=== PATIENT | female | born 1940 | race Caucasian/White ===

== ENCOUNTER 2018-04-01 18:20 | Inpatient (IN) | payer MEDICARE, OTHER ==
[~2018-04-01] VITALS: Ht 149.9 cm; Wt 76.2 kg
[~2018-04-01 18:20] MED LIST: AMLO5TAB7 PO; AMOX-427 PO; LEVO750T21 PO; LORA1TAB PO; PRED20TA PO
[2018-04-01 18:25] VITALS: BP 205/104
--- NOTE | 2018-04-01 18:25 | NUR ---
RECEIVED PT IN ER. PT RESP DISTRESS, SOB, TACHYPNEIC RESP RATE IN THE 40'S. PLACED PT ON BIPAP PER MD ORDER. 02/03, R: 16, 100%. MD AT BEDSIDE. Addendum: 04/01/18 at 1846 by LIOR LEARY RT Amended: Links added.
--- NOTE | 2018-04-01 18:29 | NUR ---
BIIBRA 102 FROM HOME DT SOB. PATIENT RECEIVED ON BIPAP. NOTED WITH DISTRESS. PATIENT REMAINS AWAKE, SATING 88% ON ROOM AIR. SKIN IS WARM TO TOUCH AND NON DIAPHORETIC. PATIENT IS AFEBRILE. NO CHEST PAIN. CONNECTED PT TO TELE MONITOR. RT AT [facility] FOR BIPAP. MD KATELIN Mcneil BEDSIDE
[2018-04-01] MEDS ORDERED: FUROSEMIDE 40 MG/4 ML VIAL IV ONE (18:30)
[2018-04-01] MEDS ORDERED: FUROSEMIDE 40 MG/4 ML VIAL ONE (18:35)
[2018-04-01] MEDS ORDERED: ESOM40CA52 PO (18:40)
[2018-04-01] MEDS ORDERED: PROP20TA19 PO (18:40)
[2018-04-01] MEDS ORDERED: EZET10TA27 PO (18:40)
[2018-04-01] MEDS ORDERED: FLUT1DIS3 IH (18:40)
[2018-04-01] MEDS ORDERED: AMYL1CAP58 PO (18:40)
[2018-04-01] MEDS ORDERED: MEMA10TA PO (18:40)
[2018-04-01] MEDS ORDERED: AMLO5TAB7 PO (18:40)
[2018-04-01] MEDS ORDERED: ROSU10TA28 PO (18:40)
[2018-04-01] MEDS ORDERED: methylPREDNISolone SOD SUCC 125 MG/2ML VIAL ONE (18:55)
[2018-04-01] MEDS ORDERED: methylPREDNISolone SOD SUCC 125 MG/2ML VIAL IV ONE (19:00)
[2018-04-01] MEDS ORDERED: ALBUTEROL FS 2.5 MG/3 ML VIAL.NEB CONTNEB ONE (19:00)
--- NOTE | 2018-04-01 19:04 | NUR ---
NOTIFIED RT FOR BREATHING TX
--- NOTE | 2018-04-01 19:04 | NUR ---
REPORT GIVEN TO MARIBEL KOHLI FOR REYES
[2018-04-01] MEDS ORDERED: ALBUTEROL FS 2.5 MG/3 ML VIAL.NEB ONE (19:16)
[2018-04-01 19:30] VITALS: BP 205/104
[2018-04-01 19:54] LABS: BASOPHILS % (AUTO) 0.1 % (0.0-2.0); EOSINOPHILS % (AUTO) 0.2 % (0.0-6.0); HEMATOCRIT 40 % (33-45); HEMOGLOBIN 13.2 g/dL (11.5-14.8); LYMPHOCYTES # (AUTO) 0.4 /CMM (0.8-4.8); MEAN CORPUSCULAR HGB CONC 34 g/dl (31.0-36.0); MEAN CORPUSCULAR VOLUME 92 fL (82-100); MONOCYTES % (AUTO) 0.3 % (2.0-12.0); NEUTROPHILS # (AUTO) 7.5 /CMM (1.8-8.9); NEUTROPHILS % (AUTO) 94.4 % (43.0-81.0); PLATELET COUNT (AUTO) 243 /CMM (150-450); RDW COEFFICIENT OF VARIATION 12.9 (11.5-15.0); RED BLOOD CELL COUNT(AUTO) 4.31 MIL/uL (4.0-5.2); WHITE BLOOD COUNT (AUTO) 7.9 K/uL (4.3-11.0)
[2018-04-01 20:00] VITALS: BP 100/56
[2018-04-01 20:07] LABS: INR 0.96 (0.87-1.13)
--- NOTE | 2018-04-01 20:30 | NUR ---
ABG TAKEN AND GIVEN TO DR MAYNARD. ABG RESULTS WNL. PATIENTS TAKEN OFF BIPAP AND PLACED ON 2LNC PER DR MAYNARD'S REQUEST. WILL CONTINUE TO MONITOR Addendum: 04/01/18 at 2056 by DEO VERA RT Amended: Links added.
[2018-04-01 20:35] LABS: CALCIUM, SERUM 9.5 mg/dL (8.5-10.1); CARBON DIOXIDE 24 mmol/L (21-32); CHLORIDE 104 mmol/L (98-107); GLUCOSE 93 mg/dL (74-106); POTASSIUM 3.8 mmol/L (3.5-5.1); SODIUM SERUM 141 mmol/L (136-145); UREA NITROGEN, BLOOD 14 mg/dL (7-18)
--- NOTE | 2018-04-01 20:35 | NUR ---
CALLED NURSING SUP. FOR [facility] BED
[2018-04-01 20:36] LABS: ABG BASE EXCESS -2.3 mmol/L; ABG PCO2 36.6 mmHg (35.0-45.0); ABG PH 7.396 (7.350-7.450); ABG PO2 402.6 mmHg (75.0-100.0); AaDO2 273.8 mmHg; SITE, ABG Right Radial
--- NOTE | 2018-04-01 20:36 | NUR ---
PATIENT TAKEN OFF BIPAP. NO RESP DISTRESS NOTED AT THIS TIME. WILL CONTINUE TO MONITOR
[2018-04-01 20:40] LABS: TROPONIN I < 0.017 ng/mL (0.00-0.056)
--- NOTE | 2018-04-01 20:45 | NUR ---
JUANJOSE VERDUZCO, SYDNEY PRESLEY NP INVESTIGATIVE SHOPPER
--- NOTE | 2018-04-01 20:47 | NUR ---
MAIKEL 109 FOR CHF EXACERBATION, SYDNEY PRESLEY ADMITTING.
[2018-04-01 20:50] LABS: ALANINE AMINOTRANSFERASE 121 U/L (12-78); ALBUMIN 3.8 g/dL (3.4-5.0); ALKALINE PHOSPHATASE 90 U/L (46-116); ASPARTATE AMINOTRANSFERASE 130 U/L (15-37); B-TYPE NATRIURETIC PEPTIDE 166 PG/ML (0-125); BILIRUBIN,DIRECT 0.2 mg/dL (0.0-0.2); BILIRUBIN,TOTAL 0.8 mg/dL (0.2-1.0); TOTAL PROTEIN, SERUM 8.1 g/dL (6.4-8.2)
--- NOTE | 2018-04-01 20:56 | NUR ---
MARIELY KOHLI TOOK REPORT FOR REYES
[2018-04-01 21:39] VITALS: BP 100/56
--- NOTE | 2018-04-01 21:41 | NUR ---
TRANSPORTED PT TO [facility]ED WITH EMT WITHOUT INCIDENT
[2018-04-01] MEDS ORDERED: ONDANSETRON HCL/PF 4 MG/2 ML VIAL IVP PRN (22:00)
[2018-04-01] MEDS ORDERED: HYDROCODONE/APAP 5/325MG 1 EACH TABLET PO PRN (22:00)
[2018-04-01] MEDS ORDERED: MORPHINE SULFATE INJ 4 MG/ML DISP.SYRIN IV PRN (22:00)
[2018-04-01] MEDS ORDERED: MAGNESIUM HYDROXIDE 30 ML UDC PO PRN (22:00)
[2018-04-01] MEDS ORDERED: MAG HYDROX/AL HYDROX/SIMETH 30 ML UDC PO PRN (22:00)
[2018-04-01] MEDS ORDERED: TEMAZEPAM 7.5 MG CAPSULE PO PRN ×2 (22:00→22:13)
[2018-04-01] MEDS ORDERED: PROPRANOLOL HCL 40 MG TABLET PO PRN (22:00)
[2018-04-01] MEDS ORDERED: LORAZEPAM 1 MG TABLET PO PRN (22:00)
[2018-04-01] MEDS: ATORVASTATIN 10 MG TABLET PO SCH (22:26)
[2018-04-01] MEDS: ENOXAPARIN SODIUM 40 MG/0.4 ML DISP.SYRIN SQ SCH (22:27)
[2018-04-02] VITALS (9 sets, daily range): BP systolic 93–145; BP diastolic 53–62
[2018-04-02 06:38] LABS: HEMATOCRIT 34 % (33-45); HEMOGLOBIN 11.4 g/dL (11.5-14.8); LYMPHOCYTES # (AUTO) 0.3 /CMM (0.8-4.8); LYMPHOCYTES % (AUTO) 1.8 % (20.0-44.0); MEAN CORPUSCULAR HGB CONC 34 g/dl (31.0-36.0); MEAN CORPUSCULAR VOLUME 92 fL (82-100); MONOCYTES # (AUTO) 0.5 /CMM (0.1-1.30); MONOCYTES % (AUTO) 2.6 % (2.0-12.0); NEUTROPHILS # (AUTO) 18.1 /CMM (1.8-8.9); NEUTROPHILS % (AUTO) 95.6 % (43.0-81.0); PLATELET COUNT (AUTO) 190 /CMM (150-450); RDW COEFFICIENT OF VARIATION 13.4 (11.5-15.0); RED BLOOD CELL COUNT(AUTO) 3.66 MIL/uL (4.0-5.2); WHITE BLOOD COUNT (AUTO) 18.9 K/uL (4.3-11.0)
[2018-04-02 06:47] LABS: CALCIUM, SERUM 9.2 mg/dL (8.5-10.1); CARBON DIOXIDE 26 mmol/L (21-32); CHLORIDE 107 mmol/L (98-107); CREATININE 1.3 mg/dL (0.6-1.3); GLUCOSE 163 mg/dL (74-106); MAGNESIUM 1.5 mg/dL (1.8-2.4); PHOSPHORUS 3.5 mg/dL (2.5-4.9); POTASSIUM 3.5 mmol/L (3.5-5.1); SODIUM SERUM 143 mmol/L (136-145); UREA NITROGEN, BLOOD 21 mg/dL (7-18)
[2018-04-02 07:11] LABS: CHOLESTEROL 158 mg/dL (<200); HDL CHOLESTEROL 40 mg/dL (40-60); LDL 108 mg/dL (0-99); TRIGLYCERIDES 67 mg/dL (30-150)
--- NOTE | 2018-04-02 07:29 | NUR ---
MAIKEL RN NOTE PATENT IN BED RESTING COMFORTABLY , ON 2L NC, NO SOB NOTED AT THIS ,ON TELE MONITOR SR TIME , LT HAND HL INTACT , BED IN LOWEST AND LOCKED POSITION ,ON TELE MONITOR SR 95 , WILL CONT TO MONITOR CLOSELY ,CALL LIGHT WITHIN REACH
[2018-04-02] MEDS ORDERED: AMYLASE/LIPASE/PROTEASE 1 CAP CAPSULE.DR PO SCH (08:00)
[2018-04-02] MEDS: EZETIMIBE 10 MG TABLET PO SCH (08:12)
[2018-04-02] MEDS: MEMANTINE HCL 5 MG TABLET PO SCH ×2 (08:12→17:00)
[2018-04-02] MEDS: LIPASE/PROTEASE/AMYLASE 1 EACH CAPSULE.DR PO SCH ×3 (08:48→17:08)
[2018-04-02] MEDS ORDERED: AMLODIPINE BESYLATE 5 MG TABLET PO SCH (09:00)
[2018-04-02] MEDS ORDERED: FUROSEMIDE 40 MG TABLET PO SCH (09:00)
--- NOTE | 2018-04-02 09:36 | NUR ---
MAIKEL RN NOTE BP 100/56 DR JONES NOTIFIED ALSO NOTIFIED THAT NORVASC HOLD AT THIS TIME AND LOWER BOTH LEGS WITH EDEMA ,STATED WILL GIVE NEW ORDER , WILL F\U
[2018-04-02] MEDS: Magnesium 1GM/D5W 100ML PREMIX 100 ML IV SCH ×2 (09:54→10:52)
[2018-04-02 11:12] LABS: TROPONIN I < 0.017 ng/mL (0.00-0.056)
--- NOTE | 2018-04-02 12:00 | NUR ---
DIESEL PILE HAMMER OPERATOR NOTE ASSISTED TO BR , ABLE TO URINATE WELL , KEEP CLEAN DRY ,NOT IN DISTRESS
[2018-04-02 12:53] LABS: FERRITIN 327 ng/mL (8-388); THYROID STIMULATING HORMONE 0.866 uIU/mL (0.358-3.74)
--- NOTE | 2018-04-02 13:11 | NUR ---
ALTERNATIVE ENERGY TECHNICIAN NOTE SEEN BY DR SOSA LÓPEZ NEW ORDER AT THIS TIME ,FAMILY AT BEDSIDE Addendum: 04/02/18 at 1401 by CARLENE COFFMAN RN 2D ECHO DONE ORDERED
[2018-04-02 13:16] LABS: IRON, SERUM 10 ug/dl (50-175); TOTAL IRON BINDING CAPACITY 241 ug/dl (250-450)
[2018-04-02] MEDS: IPRATROPIUM NEB FS 0.5 MG/2.5 ML AMPUL.NEB NEB SCH ×2 (15:29→19:16)
--- NOTE | 2018-04-02 15:29 | NUR ---
LANDSCAPE DRAFTER NOTE SPOKE WITH WITH LETITIA KOHLI RV SERVICE TECHNICIAN ,NO PT AT THIS TIME BUT OK TO TAKE PATIENT TO BS WITH ASSISTANCE
--- NOTE | 2018-04-02 16:08 | NUR ---
BILINGUAL SALES REPRESENTATIVE NOTE UA COLLECTED ORDERED, KEEP CLEAN DRY, ALL NEEDS ATTENDED. FAMILY AT BEDSIDE
--- NOTE | 2018-04-02 17:28 | NUR ---
BURIAL AGENT NOTE SPOKE WITH US TECH FAVIAN STATED THAT WILL DO DOPPLER STUDY BOTH LEGS LATTER ON ,WILL F\U
[2018-04-02 17:43] LABS: APPEARANCE,URINE CLEAR (CLEAR); BILIRUBIN,URINE NEGATIVE (NEGATIVE); BLOOD, URINE NEGATIVE Ery/uL (NEGATIVE); COLOR,URINE YELLOW (YELLOW); KETONES,URINE NEGATIVE (NEGATIVE); LEUKOCYTE ESTERASE ,URINE NEGATIVE (NEGATIVE); NITRITE, URINE NEGATIVE (NEGATIVE); PH,URINE 5.5 (5.0-8.0); PROTEIN,URINE NEGATIVE (NEGATIVE); UGLUCOSE NEGATIVE (NEGATIVE); UROBILINOGEN,URINE 0.2 EU/dL (0.2)
--- NOTE | 2018-04-02 18:25 | NUR ---
SOCIAL MEDIA EXECUTIVE NOTE HAVING DINNER , FAMILY AT BEDSIDE ,NOT IN ACUTE DISTRESS. WILL CONT TO MONITOR CLOSELY
--- NOTE | 2018-04-02 19:31 | NUR ---
VOCATIONAL GUIDANCE COUNSELOR OPENING NOTES RECEIVED REPORT FROM CARLENE KOHLI. PATIENT A/A/O X3, ABLE TO MAKE NEEDS KNOWN. BREATHING EVEN & UNLABORED, TOLERATING 2L VIA NC. CURRENTLY RECEIVING BREATHING TX. ON TELE W/ SINUS RHYTHM, HR 95. DENIES ANY RESPIRATORY OR CARDIAC DISTRESS. LEFT HAND IV #20 INTACT & PATENT W/ DRESSING CDI, SALINE LOCKED. ABLE TO AMBULATE TO BATHROOM BUT INSTRUCTED TO CALL FOR ASSISTANCE. DENIES ANY PAIN OR DISCOMFORT @ THIS TIME. SAFETY MEASURES IN PLACE W/ BED ALARM & CALL LIGHT WITHIN REACH. FAMILY @ BEDSIDE. WILL CONTINUE TO MONITOR.
[2018-04-02] MEDS: ATORVASTATIN 10 MG TABLET PO SCH (21:33)
[2018-04-02] MEDS: ENOXAPARIN SODIUM 40 MG/0.4 ML DISP.SYRIN SQ SCH (21:34)
[2018-04-02] MEDS ORDERED: MAGNESIUM OXIDE 400 MG TABLET PO SCH (22:00)
[2018-04-03] VITALS: BP 96/45
[2018-04-03] MEDS: IPRATROPIUM NEB FS 0.5 MG/2.5 ML AMPUL.NEB NEB SCH ×4 (01:18→19:17)
[2018-04-03 04:00] VITALS: BP 100/47
[2018-04-03] MEDS: ACETAMINOPHEN 325 MG TABLET PO PRN ×3 (06:11→17:50)
[2018-04-03 06:44] LABS: EOSINOPHILS % (AUTO) 1.2 % (0.0-6.0); HEMATOCRIT 32 % (33-45); HEMOGLOBIN 10.9 g/dL (11.5-14.8); LYMPHOCYTES # (AUTO) 1.7 /CMM (0.8-4.8); LYMPHOCYTES % (AUTO) 10.3 % (20.0-44.0); MEAN CORPUSCULAR HGB CONC 34 g/dl (31.0-36.0); MEAN CORPUSCULAR VOLUME 93 fL (82-100); MONOCYTES # (AUTO) 0.8 /CMM (0.1-1.30); MONOCYTES % (AUTO) 4.5 % (2.0-12.0); NEUTROPHILS # (AUTO) 14.2 /CMM (1.8-8.9); PLATELET COUNT (AUTO) 189 /CMM (150-450); RED BLOOD CELL COUNT(AUTO) 3.47 MIL/uL (4.0-5.2); WHITE BLOOD COUNT (AUTO) 16.9 K/uL (4.3-11.0)
[2018-04-03 07:03] LABS: ALANINE AMINOTRANSFERASE 166 U/L (12-78); ALBUMIN 2.9 g/dL (3.4-5.0); ALKALINE PHOSPHATASE 62 U/L (46-116); ASPARTATE AMINOTRANSFERASE 83 U/L (15-37); BILIRUBIN,TOTAL 0.6 mg/dL (0.2-1.0); CALCIUM, SERUM 8.7 mg/dL (8.5-10.1); CARBON DIOXIDE 28 mmol/L (21-32); CHLORIDE 104 mmol/L (98-107); CREATININE 0.9 mg/dL (0.6-1.3); GLUCOSE 88 mg/dL (74-106); MAGNESIUM 2.1 mg/dL (1.8-2.4); PHOSPHORUS 2.6 mg/dL (2.5-4.9); POTASSIUM 3.3 mmol/L (3.5-5.1); SODIUM SERUM 140 mmol/L (136-145); TOTAL PROTEIN, SERUM 6.8 g/dL (6.4-8.2); UREA NITROGEN, BLOOD 20 mg/dL (7-18)
[2018-04-03 07:11] LABS: TROPONIN I < 0.017 ng/mL (0.00-0.056)
--- NOTE | 2018-04-03 07:20 | NUR ---
MINING CAPTAIN OPENING NOTES RECEIVED REPORT FROM PM NURSE. PATIENT A/O X3, ABLE TO MAKE NEEDS KNOWN. BREATHING EVEN & UNLABORED, TOLERATING 2L VIA NC. ON TELE W/ SINUS RHYTHM, HR 97. DENIES ANY RESPIRATORY OR CARDIAC DISTRESS. LEFT HAND IV #20 INTACT & PATENT W/ DRESSING CDI, SALINE LOCKED. ABLE TO AMBULATE TO BATHROOM BUT INSTRUCTED TO CALL FOR ASSISTANCE. C/O PAIN AT BACK.PM NURSE GIVEN PAIN MEDS AROUND 0630. SAFETY MEASURES IN PLACE W/ BED ALARM.BED IS LOCKED AND IN LOW POSITION.SRX3. CALL LIGHT WITHIN REACH. WILL CONTINUE TO MONITOR.
[2018-04-03 08:00] VITALS: BP 126/71
[2018-04-03] MEDS: LIPASE/PROTEASE/AMYLASE 1 EACH CAPSULE.DR PO SCH ×4 (08:15→17:09)
[2018-04-03] MEDS: FUROSEMIDE 20 MG TABLET PO SCH ×2 (08:15→16:42)
[2018-04-03] MEDS: EZETIMIBE 10 MG TABLET PO SCH (08:15)
[2018-04-03] MEDS: MEMANTINE HCL 5 MG TABLET PO SCH ×2 (08:18→16:43)
[2018-04-03] MEDS ORDERED: POTASSIUM CL. PREMIX PERIPHER. 100 ML IV SCH (09:30)
[2018-04-03] MEDS ORDERED: LEVOFLOXACIN 500 MG /D5W 100ML 500 MG in PREMIX 1 EA IV SCH (09:30)
[2018-04-03] MEDS: CEFEPIME 2 GM in IV D5W 100 ML IV SCH (10:26)
[2018-04-03] MEDS: POTASSIUM CHLORIDE 20 MEQ TAB.PRT.SR PO SCH ×2 (10:26→11:49)
[2018-04-03] MEDS: LEVOFLOXACIN 750 MG /D5W 150ML 750 MG in PREMIX 1 EA IV SCH (11:49)
[2018-04-03 12:00] VITALS: BP 112/61
--- NOTE | 2018-04-03 13:30 | NUR ---
RN NOTES SEEN BY CARE TRANSITION MANAGER CHRIS MADE AWARE THAT PATIENT REFUSED NAMENDA.SHE SAID THAT PATIENT HAS THE H/O DEMENTIA ,NEED TO TAKE THIS MEDICATION.CAN'T BE DISCONTINUED AT THIS TIME.FAMILY MADE AWARE, THEY TOLD THAT THEY WILL CLARIFY IF SHE WAS TAKING THIS MEDICATION AT HOME AND WILL LET ME KNOW.ALSO NOTIFIED DOCTOR ABOUT BACK PAIN STARTED TODAY MORNING ,REQUESTING WARM COMPRESS.NO SIGNS AND SYMPTOMS OF UTI NOTED.OK TO DO WARM COMPRESS PRN.TAKING TYLENOL FOR PAIN MANAGEMENT.CONTINUE TO MONITOR.
[2018-04-03] MEDS: SOD FERRIC GLUC 125 MG in IV NS 0.9% 100 ML IV SCH (13:33)
[2018-04-03 16:00] VITALS: BP 110/75
--- NOTE | 2018-04-03 19:28 | NUR ---
CHEF DE FROID SHIFT END NOTES REPORT GIVEN TO PM NURSE. PATIENT A/O X3, ABLE TO MAKE NEEDS KNOWN. BREATHING EVEN & UNLABORED, TOLERATING 2L VIA NC. DENIES ANY RESPIRATORY OR CARDIAC DISTRESS. LEFT HAND IV #20 INTACT & PATENT W/ DRESSING CDI, SALINE LOCKED. ABLE TO AMBULATE TO BATHROOM BUT INSTRUCTED TO CALL FOR ASSISTANCE. SAFETY MEASURES IN PLACE W/ BED ALARM.BED IS LOCKED AND IN LOW POSITION.SRX3. CALL LIGHT WITHIN REACH. NEED TO COLLECT STOOL FOR OB ,PM NURSE AWARE.ENDORSED TO PM NURSE FOR REYES
--- NOTE | 2018-04-03 19:30 | NUR ---
MS CHALO INITIAL NOTES RECEIVED REPORT FROM AM NURSE AND SEEN PT IN BED AWAKE AND ALERT WITH BREATHING TREATMENT ON GOING ON AT THIS TIME. NO SIGNS OF ANY ACUTE DISTRESS NOTED. ENCOURAGE HER TO USE THE CALL LIGHT IF SHE NEEDS SOME HELPED OR NEEDS ASSISTANCE. KEPT HER WARM AND COMFORTABLE AT ALL TIMES. HEPLOCK PATENT AND INTACT. BED ALARM SET FOR SAFETY . SIDE RAILS UP AND PLACE CALL LIGHT AT REACH. WILL CONTINUE TO MONITOR.
[2018-04-03 20:00] VITALS: BP 146/80
[2018-04-03] MEDS: ENOXAPARIN SODIUM 40 MG/0.4 ML DISP.SYRIN SQ SCH (21:40)
[2018-04-04] VITALS (8 sets, daily range): BP systolic 98–138; BP diastolic 58–79
--- NOTE | 2018-04-04 | NUR ---
MS BINGO FLOATER NOTES PT SLEEPING AT THIS TIME, BREATHING EVEN AND NON-LABORED, NOT IN ANY ACUTE DISTRESS NOTED. KEPT HER WARM AND COMFORTABLE AT ALL TIMES. PLACE CALL LIGHT AT REACH. BED ALARM SET FOR SAFETY.
[2018-04-04] MEDS: IPRATROPIUM NEB FS 0.5 MG/2.5 ML AMPUL.NEB NEB SCH ×4 (01:16→19:35)
[2018-04-04] MEDS: ACETAMINOPHEN 325 MG TABLET PO PRN (04:31)
--- NOTE | 2018-04-04 04:31 | NUR ---
MS CHALO NOTES C/O MILD PAIN ON HER LOWER BACK , TYLENOL 650MG PO GIVEN ORDERED. REPOSITION HER FOR COMFORT. PLACE CALL LIGHT AT REACH.
[2018-04-04 06:52] LABS: BASOPHILS % (AUTO) 0.2 % (0.0-2.0); EOSINOPHILS % (AUTO) 4.4 % (0.0-6.0); HEMATOCRIT 33 % (33-45); HEMOGLOBIN 11.2 g/dL (11.5-14.8); LYMPHOCYTES # (AUTO) 1.3 /CMM (0.8-4.8); MEAN CORPUSCULAR HGB CONC 34 g/dl (31.0-36.0); MEAN CORPUSCULAR VOLUME 93 fL (82-100); MONOCYTES # (AUTO) 0.4 /CMM (0.1-1.30); NEUTROPHILS # (AUTO) 8.8 /CMM (1.8-8.9); NEUTROPHILS % (AUTO) 79.4 % (43.0-81.0); PLATELET COUNT (AUTO) 201 /CMM (150-450); RDW COEFFICIENT OF VARIATION 12.9 (11.5-15.0); WHITE BLOOD COUNT (AUTO) 11.1 K/uL (4.3-11.0)
[2018-04-04 06:56] LABS: ALANINE AMINOTRANSFERASE 118 U/L (12-78); ALBUMIN 2.8 g/dL (3.4-5.0); ALKALINE PHOSPHATASE 66 U/L (46-116); ASPARTATE AMINOTRANSFERASE 41 U/L (15-37); BILIRUBIN,TOTAL 0.5 mg/dL (0.2-1.0); CALCIUM, SERUM 8.7 mg/dL (8.5-10.1); CARBON DIOXIDE 30 mmol/L (21-32); CHLORIDE 105 mmol/L (98-107); CREATININE 0.8 mg/dL (0.6-1.3); GLUCOSE 85 mg/dL (74-106); MAGNESIUM 1.8 mg/dL (1.8-2.4); SODIUM SERUM 141 mmol/L (136-145); UREA NITROGEN, BLOOD 19 mg/dL (7-18)
--- NOTE | 2018-04-04 07:40 | NUR ---
RN NOTE RECEIVED PATIENT AWAKE IN BED WITH DAUGHTER AT BEDSIDE. ALERT AND ORIENTED X3, SHE IS ABLE TO MAKE THINGS KNOWN AND VERBALIZE NEEDS IN HER [place] LANGUAGE. BREATHING EVEN AND UNLABORED WITH NO DISTRESS NOTED. ON CONTINUOUS O2 2L VIA NC. ALL SAFETY MEASURES DONE. BED LOW AND LOCKED POSITION. PLACED CALL LIGHT WITH IN REACH. WILL CONTINUE TO MONITOR.
--- NOTE | 2018-04-04 07:52 | NUR ---
MS WIRE DRAWING MACHINE OPERATOR CLOSING NOTES PT RESTING COMFORTABLY IN BED WITH NO SIGNS OF ANY ACUTE DISTRESS NOTED. DAUGHTER AT THE BEDSIDE AT THIS TIME. SLEPT WELL AND STABLE FRANCOIS THE NIGHT. NO SOB NOTED. PLACE CALL LIGHT AT REACH. ENDORSE TO AM NURSE.
[2018-04-04] MEDS: FUROSEMIDE 20 MG TABLET PO SCH ×2 (08:10→16:12)
[2018-04-04] MEDS: LIPASE/PROTEASE/AMYLASE 1 EACH CAPSULE.DR PO SCH ×3 (08:10→18:25)
[2018-04-04] MEDS: MEMANTINE HCL 5 MG TABLET PO SCH ×2 (08:11→16:35)
--- NOTE | 2018-04-04 09:11 | NUR ---
RN INITIAL NOTES: RECEIVED REPORT FROM DANILO KOHLI. PATIENT RESTING IN BED. NONLABORED BREATHING NOTED ON 2 L NASAL CANNULA. PATIENT DENYING PAIN. IV SITE ON LEFT HAND #20. BED IN LOWEST LOCKED POSITION. CALL LIGHT WITHIN REACH
[2018-04-04] MEDS: CEFEPIME 2 GM in IV D5W 100 ML IV SCH (10:04)
[2018-04-04] MEDS: SOD FERRIC GLUC 125 MG in IV NS 0.9% 100 ML IV SCH (13:59)
--- NOTE | 2018-04-04 16:08 | NUR ---
OCCULT BLOOD SPECIMEN- PATIENT EDUCATED ON ORDER. PATIENT VERBALIZES THAT SHE HAS NOT BEEN ABLE TO HAVE A BOWEL MOVEMENT TODAY. PATIENT EDUCATED ON CONSTIPATION AND OFFERED MILK OF MAGNESIA PER ORDERS. PATIENT REFUSING. BENEFITS AND RISKS DISCUSSED
--- NOTE | 2018-04-04 16:35 | NUR ---
ORTHOSTATIC BP- PATIENT REFUSING TO HAVE ORTHOSTATIC BP CHECK. BENEFITS AND RISKS EXPLAINED MULTIPLE TIMES. STILL REFUSING
--- NOTE | 2018-04-04 16:36 | NUR ---
PATIENT AMBULATED AROUND THE UNIT IN A STEADY MANNER. NONLABORED BREATHING NOTED. SPO2 AT 92%. PATIENT REUSING OXYGEN WHILE AMBULATING. BENEFITS AND RISKS EXPLAINED
--- NOTE | 2018-04-04 16:39 | NUR ---
PATIENT REFUSING MEMANTINE. BENEFITS AND RISKS EXPLAINED MULTIPLE TIMES. STILL REFUSING
--- NOTE | 2018-04-04 19:20 | NUR ---
MS RN NOTES: RECEIVED PT AND IS WITH 2 FAMILY MEMBERS AT BEDSIDE. PT RECEIVING BREATHING TX FROM RT. IV REMAINS INTACT. CALL LIGHT WITHIN PT'S REACH. BED KEPT IN LOW, LOCKED POSITION, AND SIDE RAILS X 2UP. WILL CONTINUE TO MONITOR PT.
--- NOTE | 2018-04-04 19:40 | NUR ---
RN CLOSING NOTES: PATIENT RESTING IN BED. NONLABORED BREATHING NOTED ON 2 L NASAL CANNULA. PATIENT DENYING PAIN. IV SITE ON LEFT HAND #20. BED IN LOWEST LOCKED POSITION. CALL LIGHT WITHIN REACH PATIENT KEPT CLEAN AND DRY THROUGHOUT SHIFT
[2018-04-04] MEDS: ENOXAPARIN SODIUM 40 MG/0.4 ML DISP.SYRIN SQ SCH (21:01)
--- NOTE | 2018-04-04 21:24 | NUR ---
MS RN NOTES: PT GIVEN 2 PRUNE JUICE. PT DOES NOT WANT TO TAKE MOM.
[2018-04-05] MEDS: IPRATROPIUM NEB FS 0.5 MG/2.5 ML AMPUL.NEB NEB SCH ×3 (01:30→12:47)
[2018-04-05 04:00] VITALS: BP_SYST 103; BP_SYST 112; BP_SYST 124; BP_DIAS 67; BP_DIAS 69; BP_DIAS 72
[2018-04-05 05:40] VITALS: BP 112/67
--- NOTE | 2018-04-05 06:00 | NUR ---
MS RN NOTES: PT CHECKED ON ROOM AIR AND SPO2 WAS 94%.
[2018-04-05 06:25] LABS: BASOPHILS % (AUTO) 0.2 % (0.0-2.0); EOSINOPHILS % (AUTO) 5.6 % (0.0-6.0); HEMATOCRIT 35 % (33-45); HEMOGLOBIN 11.8 g/dL (11.5-14.8); LYMPHOCYTES # (AUTO) 1.6 /CMM (0.8-4.8); LYMPHOCYTES % (AUTO) 19.2 % (20.0-44.0); MEAN CORPUSCULAR HGB CONC 34 g/dl (31.0-36.0); MEAN CORPUSCULAR VOLUME 92 fL (82-100); MONOCYTES # (AUTO) 0.5 /CMM (0.1-1.30); MONOCYTES % (AUTO) 5.7 % (2.0-12.0); NEUTROPHILS # (AUTO) 5.7 /CMM (1.8-8.9); NEUTROPHILS % (AUTO) 69.3 % (43.0-81.0); PLATELET COUNT (AUTO) 197 /CMM (150-450); RDW COEFFICIENT OF VARIATION 13.1 (11.5-15.0); RED BLOOD CELL COUNT(AUTO) 3.82 MIL/uL (4.0-5.2); WHITE BLOOD COUNT (AUTO) 8.2 K/uL (4.3-11.0)
[2018-04-05 06:32] LABS: CALCIUM, SERUM 9.4 mg/dL (8.5-10.1); CARBON DIOXIDE 31 mmol/L (21-32); CHLORIDE 106 mmol/L (98-107); CREATININE 0.8 mg/dL (0.6-1.3); GLUCOSE 95 mg/dL (74-106); POTASSIUM 3.6 mmol/L (3.5-5.1); SODIUM SERUM 142 mmol/L (136-145); UREA NITROGEN, BLOOD 21 mg/dL (7-18)
--- NOTE | 2018-04-05 06:38 | NUR ---
MS RN CLOSING NOTES: ALL NEEDS WERE ATTENDED AND ANTICIPATED FOR. PT ON 2LPM VIA NC AND TOLERATING WELL. PT ASLEEP AT THIS TIE. PT HAS IV ON L HAND #20G AND IS PATENT AND INTACT. CURRENTLY S/L. CALL LIGHT WITHIN PT'S REACH. BED KEPT IN LOW, LOCKED POSITION, AND SIDE RAILS X 2UP. WILL ENDORSE TO AM NURSE FOR REYES.
--- NOTE | 2018-04-05 07:30 | NUR ---
SECURITIES CLERK INITIAL NOTES RECEIVED PATIENT SLEEPING IN BED, EASY TO AROUSE, AOX3, V[place]UELAN SPEAKING WITH SOME ROMANIAN, NC 2L, SATURATING WELL, ABLE TO AMBULATE, IV L HAND 20G, CLEAN AND PATENT, SL. BED IN LOW AND LOCKED POSITION, CALL LIGHT WITHIN REACH. WILL CONTINUE TO MONITOR.
[2018-04-05 08:00] VITALS: BP 115/67
[2018-04-05] MEDS: MEMANTINE HCL 5 MG TABLET PO SCH (08:34)
[2018-04-05] MEDS: LIPASE/PROTEASE/AMYLASE 1 EACH CAPSULE.DR PO SCH ×2 (08:34→13:36)
[2018-04-05] MEDS: FUROSEMIDE 20 MG TABLET PO SCH (08:34)
[2018-04-05] MEDS: CEFEPIME 2 GM in IV D5W 100 ML IV SCH (09:21)
[2018-04-05] MEDS ORDERED: POTASSIUM CHLORIDE 20 MEQ TAB.PRT.SR PO SCH (09:30)
[2018-04-05] MEDS: LEVOFLOXACIN 750 MG /D5W 150ML 750 MG in PREMIX 1 EA IV SCH (10:25)
[2018-04-05] MEDS ORDERED: DOXY100T2 PO (10:41)
[2018-04-05] MEDS ORDERED: POTA20TA83 PO (10:41)
[2018-04-05] MEDS ORDERED: IPRA12.9 INH (10:41)
[2018-04-05] MEDS ORDERED: ALBU18HF2 INH (10:41)
[2018-04-05] MEDS ORDERED: FERR325T23 PO (10:41)
[2018-04-05] MEDS ORDERED: FURO20TA4 PO (10:41)
[2018-04-05] MEDS ORDERED: LEVO500T90 PO (10:41)
[2018-04-05 12:18] VITALS: BP 135/73
--- NOTE | 2018-04-05 14:00 | NUR ---
CARBON CAPTURE POWER PLANT ENGINEER NOTES PATIENT DISCHARGE ORDERS GIVEN BY INSOLE PRESSER LETITIA MAX, ALL DISCHARGE PAPERWORK DONE AND SIGNED, TEACHING DONE. PATIENT PRESCRIPTION GIVEN AND INSTRUCTIONS GIVEN ABOUT INDICATION AND FREQUENCY MEDICATIONS, EDUCATED ABOUT WHICH MEDICATIONS TO STOP AND WHICH TO CONTINUE. INSTRUCTIONS GIVEN ABOUT MAKING FOLLOW-UP APPT WITH DR. JONES AND APPT ON THURSDAY WITH [facility]. PATIENT, AND SON VERBALIZED UNDERSTAND. IV DC INTACT, ID BAND OFF, PATIENT BELONGINGS LIST SIGNED, NO WOUNDS PRESENT, PATIENT TAKEN TO LOBBY VIA WHEELCHAIR.
[2018-04-06] MEDS ORDERED: FUROSEMIDE 20 MG TABLET PO SCH (09:00)
[2018-06-20] MEDS ORDERED: AMLO5TAB7 PO (17:40)
[2018-06-26] MEDS ORDERED: LORA1TAB PO (19:34)
[2018-06-26] MEDS ORDERED: IPRA0.2S9 NEB (19:34)
[2018-06-26] MEDS ORDERED: POTA20TA83 PO (19:34)
[2018-06-26] MEDS ORDERED: ACET-2605 PO (19:34)
[2018-06-26] MEDS ORDERED: ALBU2.5V13 NEB (19:34)
[2018-06-26] MEDS ORDERED: PANT40VI IV (19:34)
[2018-06-26] MEDS ORDERED: ONDA4VIA23 IV (19:34)
[2018-06-26] MEDS ORDERED: LEVO500T90 PO (19:43)
== END 2018-04-05 14:05 | disposition home or self-care (01) | DRG 177 ==
LOC: ER 18:22 → TELE-TD 21:14 → TELE1 04-02 11:08 → MEDSG1 04-03 09:27
PROVIDERS: ADMIT Nurse Practitioner Acute Care; ATTEND Nurse Practitioner Acute Care
DX: J15.6 Pneumonia due to other Gram-negative bacteria (principal); J96.01 Acute respiratory failure with hypoxia; I50.33 Acute on chronic diastolic (congestive) heart failure; E44.0 Moderate protein-calorie malnutrition; I11.0 Hypertensive heart disease with heart failure; J15.9 Unspecified bacterial pneumonia; E66.9 Obesity, unspecified; I25.10 Atherosclerotic heart disease of native coronary artery without angina pectoris; E83.42 Hypomagnesemia; Z88.8 Allergy status to other drugs, medicaments and biological substances; Z79.899 Other long term (current) drug therapy; E78.5 Hyperlipidemia, unspecified; D50.9 Iron deficiency anemia, unspecified; F03.90 Unspecified dementia, unspecified severity, without behavioral disturbance, psychotic disturbance, mood disturbance, and anxiety; K21.9 Gastro-esophageal reflux disease without esophagitis; Z68.30 Body mass index [BMI] 30.0-30.9, adult; E66.01 Morbid (severe) obesity due to excess calories; D64.9 Anemia, unspecified; Z90.49 Acquired absence of other specified parts of digestive tract; Z87.01 Personal history of pneumonia (recurrent); F41.9 Anxiety disorder, unspecified; E87.6 Hypokalemia; I95.2 Hypotension due to drugs; T50.2X5A Adverse effect of carbonic-anhydrase inhibitors, benzothiadiazides and other diuretics, initial encounter; Y92.009 Unspecified place in unspecified non-institutional (private) residence as the place of occurrence of the external cause; T38.0X5A Adverse effect of glucocorticoids and synthetic analogues, initial encounter; D72.829 Elevated white blood cell count, unspecified
CPT/HCPCS: 36415; 36600; 71045-TC; 80048-TC; 80053-TC; 80061-TC; 80076-TC; 81000-TC; 82728-TC; 82803-TC; 83540-TC; 83735-TC; 83880; 84100-TC; 84439-TC; 84443-TC; 84484-TC; 85025-TC; 85730-TC; 87081-TC; 93307-TC; 93970-TC; 94799-TC; A4216; A4606; J0692; J1650; J1940; J1956; J2270; J2916; J2930; J3475; J3480; J7030; J7040; J7060; Z7610

== ENCOUNTER 2018-04-08 12:14 | Outpatient (CLI) | payer MEDICARE, OTHER ==
[~2018-04-08 12:14] MED LIST changes: +ALBU18HF2 INH; -AMLO5TAB7 PO; -AMOX-427 PO; +AMYL1CAP58 PO; +DOXY100T2 PO; +ESOM40CA52 PO; +EZET10TA27 PO; +FERR325T23 PO; +FLUT1DIS3 IH; +FURO20TA4 PO; +IPRA12.9 INH; +LEVO500T90 PO; -LEVO750T21 PO; +MEMA10TA PO; +POTA20TA83 PO; -PRED20TA PO; +ROSU10TA28 PO
[2018-04-08 12:35] VITALS: BP 110/60
[2018-06-20] MEDS ORDERED: AMLO5TAB7 PO (17:40)
[2018-06-26] MEDS ORDERED: IPRA0.2S9 NEB (19:34)
[2018-06-26] MEDS ORDERED: ALBU2.5V13 NEB (19:34)
[2018-06-26] MEDS ORDERED: LORA1TAB PO (19:34)
[2018-06-26] MEDS ORDERED: ONDA4VIA23 IV (19:34)
[2018-06-26] MEDS ORDERED: ACET-2605 PO (19:34)
[2018-06-26] MEDS ORDERED: PANT40VI IV (19:34)
[2018-06-26] MEDS ORDERED: POTA20TA83 PO (19:34)
[2018-06-26] MEDS ORDERED: LEVO500T90 PO (19:43)
== END 2018-04-08 23:59 | disposition home or self-care (01) ==
LOC: MSC 12:14
PROVIDERS: ATTEND Internal Medicine
DX: J18.9 Pneumonia, unspecified organism (principal); I11.0 Hypertensive heart disease with heart failure; I50.30 Unspecified diastolic (congestive) heart failure; R74.0 Nonspecific elevation of levels of transaminase and lactic acid dehydrogenase [LDH]; K76.1 Chronic passive congestion of liver; I25.10 Atherosclerotic heart disease of native coronary artery without angina pectoris; D64.9 Anemia, unspecified; E78.5 Hyperlipidemia, unspecified; G93.41 Metabolic encephalopathy

== ENCOUNTER 2018-06-20 16:51 | Inpatient (IN) | payer MEDICARE, OTHER ==
[~2018-06-20] VITALS: Ht 152.4 cm; Wt 74.1 kg
--- NOTE | 2018-06-20 16:52 | NUR ---
BIBRA C/O SOB STARTED 1 HR AGO, SPO2=77% ON RA, +N/V. SOB NOTED. PLACED PATIENT ON 4LPM VIA NC, SATURATION OF 96%. FAMILY AT BEDSIDE. VSS. WAITING MD FOR EVAL
[2018-06-20] MEDS ORDERED: FUROSEMIDE 40 MG/4 ML VIAL ONE (17:28)
[2018-06-20] MEDS ORDERED: methylPREDNISolone SOD SUCC 125 MG/2ML VIAL ONE (17:28)
[2018-06-20 17:29] LABS: BASOPHILS % (AUTO) 0.6 % (0.0-2.0); EOSINOPHILS % (AUTO) 0.4 % (0.0-6.0); HEMATOCRIT 42 % (33-45); HEMOGLOBIN 13.7 g/dL (11.5-14.8); LYMPHOCYTES # (AUTO) 0.5 /CMM (0.8-4.8); LYMPHOCYTES % (AUTO) 25.8 % (20.0-44.0); MEAN CORPUSCULAR HEMOGLOBIN 29 PG (26.0-33.0); MEAN CORPUSCULAR HGB CONC 33 g/dl (31.0-36.0); MEAN CORPUSCULAR VOLUME 90 fL (82-100); MONOCYTES % (AUTO) 1.8 % (2.0-12.0); NEUTROPHILS # (AUTO) 1.6 /CMM (1.8-8.9); NEUTROPHILS % (AUTO) 71.4 % (43.0-81.0); PLATELET COUNT (AUTO) 178 /CMM (150-450); RDW COEFFICIENT OF VARIATION 12.8 (11.5-15.0); RED BLOOD CELL COUNT(AUTO) 4.67 MIL/uL (4.0-5.2); WHITE BLOOD COUNT (AUTO) 2.1 K/uL (4.3-11.0)
[2018-06-20] MEDS ORDERED: ASPIRIN 325 MG TABLET ONE (17:29)
[2018-06-20] MEDS ORDERED: ALBUTEROL FS 2.5 MG/3 ML VIAL.NEB NEB ONE (17:30)
[2018-06-20] MEDS ORDERED: FUROSEMIDE 40 MG/4 ML VIAL IV ONE (17:30)
[2018-06-20] MEDS ORDERED: IPRATROPIUM NEB FS 0.5 MG/2.5 ML AMPUL.NEB NEB ONE (17:30)
[2018-06-20] MEDS ORDERED: methylPREDNISolone SOD SUCC 125 MG/2ML VIAL IV ONE ×2 (17:30→22:30)
[2018-06-20] MEDS ORDERED: ASPIRIN 325 MG TABLET PO ONE (17:30)
--- NOTE | 2018-06-20 17:36 | NUR ---
CALLED DR GRIMES'S ANSWERING SERVICE WAS PAGED.
[2018-06-20] MEDS ORDERED: AMLO5TAB2 PO (17:40)
[2018-06-20] MEDS ORDERED: PROP20TA19 PO (17:40)
[2018-06-20] MEDS ORDERED: FURO20TA4 PO (17:40)
[2018-06-20] MEDS ORDERED: POTA20TA83 PO (17:40)
[2018-06-20] MEDS ORDERED: IPRATROPIUM NEB FS 0.5 MG/2.5 ML AMPUL.NEB ONE (17:43)
[2018-06-20] MEDS ORDERED: ALBUTEROL FS 2.5 MG/3 ML VIAL.NEB ONE ×2 (17:43→17:49)
[2018-06-20 17:45] LABS: INR 0.93 (0.85-1.15)
[2018-06-20 17:47] LABS: TROPONIN I < 0.017 ng/mL (0.00-0.056)
--- NOTE | 2018-06-20 17:47 | NUR ---
CALLED DR GIRON'S CELL PHONE , LEFT A VOICEMAIL.
[2018-06-20 17:54] LABS: CARBON DIOXIDE 27 mmol/L (21-32); CHLORIDE 105 mmol/L (98-107); CREATININE 0.8 mg/dL (0.6-1.3); GLUCOSE 94 mg/dL (74-106); POTASSIUM 3.8 mmol/L (3.5-5.1); SODIUM SERUM 139 mmol/L (136-145); UREA NITROGEN, BLOOD 20 mg/dL (7-18)
[2018-06-20 17:57] LABS: ABG BASE EXCESS -2.1 mmol/L; ABG OXYGEN SATURATION 89.1 % (92.0-98.5); ABG PCO2 51.6 mmHg (35.0-45.0); ABG PH 7.302 (7.350-7.450); ABG PO2 62.6 mmHg (75.0-100.0); AaDO2 134.2 mmHg; COHb 0.3 % (0.5-1.5); MetHb 0.5 % (0.0-1.5); O2Hb 88.4 % (94.0-97.0); SITE, ABG Right Brachial; VENT MODE, BG NC 4L
[2018-06-20 18:00] LABS: ALANINE AMINOTRANSFERASE 24 U/L (12-78); ALBUMIN 3.5 g/dL (3.4-5.0); ALKALINE PHOSPHATASE 59 U/L (46-116); ASPARTATE AMINOTRANSFERASE 28 U/L (15-37); BILIRUBIN,DIRECT 0.1 mg/dL (0.0-0.2); BILIRUBIN,TOTAL 0.3 mg/dL (0.2-1.0); LIPASE 114 U/L (73-393); TOTAL PROTEIN, SERUM 7.8 g/dL (6.4-8.2)
--- NOTE | 2018-06-20 18:01 | NUR ---
CALLED DR GIRON'S CELL PHONE , LEFT ANOTHER VOICEMAIL.
--- NOTE | 2018-06-20 18:14 | NUR ---
CALLED DR GRIMES'S ANSWERING SERVICE WAS REPAGED.
--- NOTE | 2018-06-20 18:17 | NUR ---
CALLED DR CABRERA, ON THE PHONE WITH DR WARREN.
[2018-06-20 19:10] LABS: BAND % (MANUAL) 7 % (0.0-5.0); EOSINOPHILS % (MANUAL) 2 % (0-4); LYMPHOCYTES % (MANUAL) 27 % (16-48); MONOCYTES % (MANUAL) 3 % (0-11.0); NEUTROPHILS % (MANUAL) 61 (42-76)
--- NOTE | 2018-06-20 19:28 | NUR ---
Patient is resting comfortably in bed with eyes closed. Easily aroused. VSS. FAMILY AT BEDSIDE
--- NOTE | 2018-06-20 20:00 | NUR ---
PT ASSIGNED TO BED 310-2
--- NOTE | 2018-06-20 20:12 | NUR ---
REPORT GIVEN TO RASHID ONTIVEROS
--- NOTE | 2018-06-20 20:20 | NUR ---
PT TRANSPORTED STABLE CONDITION, VSS. NAD VIA ACLS PROTOCOL
--- NOTE | 2018-06-20 20:30 | NUR ---
RN ADMITTING NOTES CUSTOMER PROGRAM MANAGER RECEIVED REPORT FROM POLICE MATRON. Pt ARRIVED TO THE FLOOR VIA GURNEY. TRANSFERRED Pt TO BED SAFELY. PLACED Pt ON 4L O2 VIA NC SATING AT 92%. IV ACCESS ON LAC #20G. Pt IS A/OX3, CAN SPEAK, BUT IS LETHARGIC; MALAGASY SPEAKING ONLY. SAFETY MEASURES IN PLACE. BED LOW, LOCKED, HOB ELEVATED, SIDE RAILS UP, CALL LIGHT AND BEDSIDE TABLE WITHIN REACH. WILL CONTINUE TO MONITOR Pt THROUGHOUT THE NIGHT FOR SAFETY.
--- NOTE | 2018-06-20 20:45 | NUR ---
RN NOTES SPOKE WITH DAUGHTER ON THE PHONE, WILL BE COMING TO THE HOSPITAL TO HELP TRANSLATE FOR THE Pt.
[2018-06-20 21:00] VITALS: BP 118/58
--- NOTE | 2018-06-20 21:15 | NUR ---
FAMILY NUMBERS: 1.) HEAVENLY (DTR): 2.) ABEL (DTR): 3.) LIANA (SON):
[2018-06-20] MEDS ORDERED: AZITHROMYCIN 500 MG VIAL ONE (23:12)
--- NOTE | 2018-06-20 23:12 | NUR ---
RN NOTES RECEIVED REPORT FROM [facility] RN GEORGE FOR PATIENT'S REYES
[2018-06-20 23:29] LABS: MAGNESIUM 1.9 mg/dL (1.8-2.4)
--- NOTE | 2018-06-20 23:30 | NUR ---
RN NOTES BUSINESS ASSOCIATE SPOKE WITH DR GIRON ON THE PHONE TO GET ADMITTING ORDERS. HOWEVER ONCE THE DOCTOR REALIZED THE Pt WAS ALSO POSITIVE FOR RESPIRATORY ACIDOSIS, WANTED THE Pt TO BE PLACED ON A BIPAP. Pt WILL HAVE TO BE TRANSFERRED TO ICU FOR BIPAP TREATMENT. NURSE LORI MADE AWARE, LOOKING FOR BED IN ICU.
[2018-06-20 23:31] VITALS: BP 118/58
[2018-06-20] MEDS: PANTOPRAZOLE 40 MG VIAL IV SCH (23:49)
[2018-06-20] MEDS: ENOXAPARIN SODIUM 40 MG/0.4 ML DISP.SYRIN SQ SCH (23:51)
[2018-06-21] VITALS (32 sets, daily range): BP systolic 88–136; BP diastolic 42–65
[2018-06-21] MEDS: AZITHROMYCIN 500 MG in IV D5W 250 ML IV SCH ×2 (00:16→21:05)
[2018-06-21] MEDS: LORAZEPAM 1 MG TABLET PO PRN ×2 (00:17→21:07)
[2018-06-21] MEDS: ALBUTEROL FS 2.5 MG/3 ML VIAL.NEB NEB SCH ×4 (00:17→23:09)
--- NOTE | 2018-06-21 00:18 | NUR ---
RT Pt refused to be placed on BiPAP. pt on nc w/ no complaint of sob, no resp distress noted. pt appears comfortable on nc. rn at bedside and aware. will cont to monitor pt.
--- NOTE | 2018-06-21 00:20 | NUR ---
RN NOTES Pt TRANSFERRED SAFELY TO ICU ROOM 257-1.
[2018-06-21] MEDS ORDERED: LORAZEPAM 1 MG TABLET PO PRN (00:30)
--- NOTE | 2018-06-21 00:30 | NUR ---
RN NOTES PATIENT ARRIVED VIA BED FROM [facility]. PT IS A/O X4, WOLOF SPEAKING ONLY. ON 4L NASAL CANNULA, NO S/S OF RESP DISTRESS, SATURATING > 95%. CHUCK RT EXPLAINED TO THE PATIENT ABOUT MD'S ORDER OF BIPAP FOR THE NIGHT. PATIENT DECLINED BIPAP DESPITE EDUCATION. WILL KEEP PATIENT ON NASAL CANNULA, MONITOR, AND DO REPEAT ABG IN AM. PT IS SINUS TACH ON THE MONITOR, HR 100'S. 3 WEST RN TO CALL FAMILY TO UPDATE ON ROOM CHANGE. SKIN INTACT. PT IS CONTINENT, ABLE TO USE BEDSIDE COMMODE WITH 1 PERSON ASSIST. LEFT AC 20G FLUSHED AND PATENT, NO S/S OF INFILTRATION/INFECTION, DRESSING CDI. BED LOW AND LOCKED, SIDERAILS UP, CALL LIGHT WITHIN REACH, BED ALARM ON. WILL MONITOR
--- NOTE | 2018-06-21 01:00 | NUR ---
RN NOTES CALLED DAUGHTERS HEAVENLY & ABEL AND SON LIANA TO INFORM THEM OF THE UNIT AND ROOM CHANGE DOWN TO ICU ROOM 257-1. NO ONE ANSWERED, LEFT MESSAGE ON VOICEMAIL AND LEFT NUMBER FOR ICU FLOOR.
--- NOTE | 2018-06-21 05:10 | NUR ---
RT Pt refused ABG. rn made aware. no resp distress or sob noted.
--- NOTE | 2018-06-21 06:00 | NUR ---
RN CLOSING NOTES PT REMAINS STABLE OF THE MOMENT. REMAINS TO BE ON 4L NC. NO S/S OF RESP DISTRESS. ALL DUE MEDS GIVEN. WILL ENDORSE REYES TO AM RN
--- NOTE | 2018-06-21 07:10 | NUR ---
RECEIVED PATIENT A/OX4 ON NASAL CANNULA 4LPM TOLERATING WELL. NO NOTED SOB, DIFFICULTY BREATHING OR PAIN EXPRESSED. PER EARL RN PATIENT HAS REFUSED BIPAP AND ABG'S WILL INFORM MD AGAIN THIS AM. PATIENT AMBULATORY TO BSC WITHOUT ANY SOB. SKIN, ASPIRATION, AND SAFETY PRECAUTIONS IN PLACE. ALL NEEDS ASSESSED AND MET. WILL MONITOR.
[2018-06-21] MEDS ORDERED: AMYLASE/LIPASE/PROTEASE 1 CAP.EC PO SCH (08:00)
[2018-06-21] MEDS: CARVEDILOL 3.125 MG TABLET PO SCH ×2 (08:16→16:45)
[2018-06-21] MEDS: POTASSIUM CHLORIDE 20 MEQ TAB.PRT.SR PO SCH (08:16)
[2018-06-21] MEDS: AMLODIPINE BESYLATE 2.5 MG TABLET PO SCH ×2 (08:16→17:00)
[2018-06-21] MEDS: FLUTICASONE/VILANTEROL 1 EACH BLST.W.DEV IH SCH (08:45)
[2018-06-21] MEDS ORDERED: FUROSEMIDE 20 MG TABLET PO SCH (09:00)
[2018-06-21] MEDS ORDERED: FLUTICASONE/SALMETEROL DISKUS IH SCH (09:00)
--- NOTE | 2018-06-21 11:33 | NUR ---
DR MCGINNIS AT BEDSIDE. NOTIFIED PATIENT BECOMES TACHYCARDIC WHEN AMBULATING WITH PT. PER MD OBTAIN ORTHOSTATICS; PATIENT POSITIVE. PATIENT REFUSING CT ANGIO TO R/O PE. PER MD GIVE PATIENT 250ML BOLUS AT RATE OF 125/HR AND RECHECK ORTHOSTATICS S/P FLUIDS.
[2018-06-21] MEDS ORDERED: IV NS 0.9% 250 ML IV ONE (12:00)
[2018-06-21] MEDS: LIPASE/PROTEASE/AMYLASE 1 EACH CAPSULE.DR PO SCH ×2 (12:59→18:47)
--- NOTE | 2018-06-21 13:32 | NUR ---
NOTIFIED DR MCGINNIS OF PATIENT D DIMER RESULTS 7.85. PER MD NO NEW ORDERS. CONTINUE WITH BLE DOPPLER.
--- NOTE | 2018-06-21 14:31 | NUR ---
PATIENT BLE DOPPLER NEGATIVE PER TECH. PATIENT ORTHOSTATICS TAKEN S/P BOLUS AND PATIENT NEGATIVE FOR ORTHO HYPOTENSION. AND TOLERATING ROOM AIR 92% AT THIS TIME. WILL MONITOR
--- NOTE | 2018-06-21 19:00 | NUR ---
RN INITIAL NOTES RECEIVED THE PATIENT AWAKE ON BED, A/O X4, DIVEHI SPEAKING ONLY. AT BEDSIDE. PT IS ON 4L NASAL CANNULA, SATURATING WELL, NO S/S OF RESP DISTRESS. DENIES ANY PAIN. CURRENTLY SR ON THE MONITOR, HR 90'S. PT IS CONTINENT AND ABLE TO USE BEDSIDE COMMODE WITH MINIMAL ASSISTANCE. LEFT AC 20G IS FLUSHED AND PATENT, NO S/S OF INFILTRATION/INFECTION, DRESSING CDI. BED LOW AND LOCKED, SIDERAILS UP, CALL LIGHT WITHIN REACH. WILL MONITOR
--- NOTE | 2018-06-21 19:07 | NUR ---
DR MCGINNIS AT BEDSIDE. NOTIFIED PATIENT REFUSED BIPAP/ABG. UPDATED ON DR MCGINNIS ORDERS. NO NEW ORDERS AT THIS TIME.
[2018-06-21] MEDS: ENOXAPARIN SODIUM 40 MG/0.4 ML DISP.SYRIN SQ SCH (21:06)
[2018-06-21] MEDS: PANTOPRAZOLE 40 MG VIAL IV SCH (21:07)
[2018-06-21] MEDS ORDERED: methylPREDNISolone SOD SUCC 125 MG/2ML VIAL IV ONE (23:00)
[2018-06-22] VITALS (24 sets, daily range): BP systolic 93–126; BP diastolic 50–73
--- NOTE | 2018-06-22 01:19 | NUR ---
RN NOTES REPORT GIVEN TO KAMILLA ZAPATA FOR THE PATIENT'S REYES
[2018-06-22 04:51] LABS: EOSINOPHILS % (AUTO) 0.1 % (0.0-6.0); HEMATOCRIT 36 % (33-45); HEMOGLOBIN 11.6 g/dL (11.5-14.8); MEAN CORPUSCULAR HEMOGLOBIN 30 PG (26.0-33.0); MEAN CORPUSCULAR HGB CONC 32 g/dl (31.0-36.0); MEAN CORPUSCULAR VOLUME 93 fL (82-100); MONOCYTES # (AUTO) 0.1 /CMM (0.1-1.30); MONOCYTES % (AUTO) 0.6 % (2.0-12.0); NEUTROPHILS # (AUTO) 15.5 /CMM (1.8-8.9); NEUTROPHILS % (AUTO) 93.3 % (43.0-81.0); PLATELET COUNT (AUTO) 163 /CMM (150-450); RDW COEFFICIENT OF VARIATION 13.7 (11.5-15.0); RED BLOOD CELL COUNT(AUTO) 3.92 MIL/uL (4.0-5.2); WHITE BLOOD COUNT (AUTO) 16.6 K/uL (4.3-11.0)
[2018-06-22 05:08] LABS: ALBUMIN 2.9 g/dL (3.4-5.0); CALCIUM, SERUM 8.6 mg/dL (8.5-10.1); CARBON DIOXIDE 27 mmol/L (21-32); CHLORIDE 103 mmol/L (98-107); GLUCOSE 160 mg/dL (74-106); POTASSIUM 4.3 mmol/L (3.5-5.1); SODIUM SERUM 135 mmol/L (136-145); UREA NITROGEN, BLOOD 34 mg/dL (7-18)
[2018-06-22 05:27] LABS: ALANINE AMINOTRANSFERASE 84 U/L (12-78); ALKALINE PHOSPHATASE 47 U/L (46-116); ASPARTATE AMINOTRANSFERASE 55 U/L (15-37); BILIRUBIN,TOTAL 0.5 mg/dL (0.2-1.0); TOTAL PROTEIN, SERUM 7.1 g/dL (6.4-8.2)
[2018-06-22] MEDS: ALBUTEROL FS 2.5 MG/3 ML VIAL.NEB NEB SCH ×3 (07:41→23:46)
--- NOTE | 2018-06-22 07:56 | NUR ---
INITIAL BOOSTER PUMP OILER NOTE RCVD PT AWAKE AND ALERT, MAINLY CHINESE SPEAKING, SHOWING NO S/O DISTRESS, SR ON TELE TOLERATING O2 VIA NC. DENIES ANY PAIN. VOIDING TO BSC. IV SITE C/D/I/PATENT. NO S/O INFILTRATION/PHLEBITIS OBSERVED UPON FLUSHING. WILL CONTINUE TO MONITOR PT FOR SAFETY AND COMFORT. BED IN LOW AND LOCKED POSITION. CALL LIGHT WITHIN REACH.
[2018-06-22] MEDS: CARVEDILOL 3.125 MG TABLET PO SCH ×2 (08:16→17:02)
[2018-06-22] MEDS: FLUTICASONE/VILANTEROL 1 EACH BLST.W.DEV IH SCH (08:16)
[2018-06-22] MEDS: POTASSIUM CHLORIDE 20 MEQ TAB.PRT.SR PO SCH (08:16)
[2018-06-22] MEDS: LIPASE/PROTEASE/AMYLASE 1 EACH CAPSULE.DR PO SCH ×3 (08:16→17:02)
[2018-06-22] MEDS: AMLODIPINE BESYLATE 2.5 MG TABLET PO SCH ×2 (08:17→17:01)
--- NOTE | 2018-06-22 14:16 | NUR ---
PARTITION ASSEMBLY MACHINE OPERATOR NOTE PT'S FAMILY AT BEDSIDE UPDATED ON PT'S CONDITION. QUESTIONS ANSWERED TO THEIR SATISFACTION.
--- NOTE | 2018-06-22 18:14 | NUR ---
CARDIAC REHABILITATION PROGRAM DIRECTOR NOTE PT REMAINED STABLE DURING SHIFT, AWAKE AND ALERT, SR ON TELE TOLERATING O2 VIA NC. VOIDING TO BSC WITH INDEPENDENT TRANSFER DESPITE BEING INSTRUCTED TO CALL FOR ASSISTANCE. PER DR. NAVARRO PT CLEARED TO BE DOWNGRADED TO MED-SURG. WILL CONTINUE TO MONITOR PT FOR SAFETY AND COMFORT. BED IN LOW AND LOCKED POSITION. CALL LIGHT WITHIN REACH.
--- NOTE | 2018-06-22 19:58 | NUR ---
AIR/OCEAN EXPORT CLERK NOTE RECEIVED PT IN BED SEMIFOWLER. A/O X 3, ICELANDIC SPEAKING. NO DISTRESS OR DISCOMFORT NOTED. DENIES PAIN. RESP EVEN AND NON LABORED. ON O2 3L VIA N/C O2 SAT 96%. LAC #20 G S/L INTACT AND PATENT. SIDE RAILS UP X 2 AND CALL LIGHT WITHIN REACH. VSS. CONTINUE TO MONITOR HER.
[2018-06-22] MEDS: AZITHROMYCIN 500 MG in IV D5W 250 ML IV SCH (21:53)
[2018-06-22] MEDS: LORAZEPAM 1 MG TABLET PO PRN (21:54)
[2018-06-22] MEDS: PANTOPRAZOLE 40 MG VIAL IV SCH (21:54)
[2018-06-22] MEDS: ENOXAPARIN SODIUM 40 MG/0.4 ML DISP.SYRIN SQ SCH (21:55)
[2018-06-22] MEDS ORDERED: methylPREDNISolone SOD SUCC 40 MG/ML VIAL IV ONE (23:00)
[2018-06-23] VITALS (9 sets, daily range): BP systolic 101–122; BP diastolic 55–68
--- NOTE | 2018-06-23 05:25 | NUR ---
LOCKSTITCH WAISTBAND SETTER NOTE REPORT GIVEN TO NURSE LETITIA IN MS. ALSO INFORMED PT THAT WE WILL BE TRANSFERRING HER TO MS 3RD FLOOR. PT IN NO DISTRESS OR DISCOMFORT NOTED. DENIES PAIN. RESP EVEN AND NON LABORED.
--- NOTE | 2018-06-23 05:27 | NUR ---
MS/RN NOTES RECEIVED REPORT FROM KAMILLA BOB. AWAITING PT. ARRIVAL.
--- NOTE | 2018-06-23 05:32 | NUR ---
RT NOTE PATIENT REFUSED ARTERIAL BLOOD GAS. RN NURSE NOTIFIED.
--- NOTE | 2018-06-23 05:35 | NUR ---
SYSTEM ANALYST NOTE TRANSFERRED PT TO ROOM 326-1 MS FLOOR VIA W/C. PT IN NO DISTRESS OR DISCOMFORT. NURSE DONG RECEIVED THE PT FOR CONTINUE TO CARE.
--- NOTE | 2018-06-23 05:40 | NUR ---
MS/RN NOTES RECEIVED PT. FROM ICU VIA WHEELCHAIR ESCORTED BY KAMILLA BOB. PT. IS AWAKE, ALERT AND ORIENTED X3. BREATHING EVEN AND UNLABORED ON 3LPM O2 VIA NC. NO SOB, RESPIRATORY DISTRESS OR COMPLAINTS OF PAIN NOTED AT THIS TIME. ORIENTED PT. TO ROOM. PT. WITH LEFT AC 20 GAUGE IV SALINE LOCK PRESENT, PATENT AND INTACT. BED LOCKED AND IN LOWEST POSITION, SIDE RAILS UP X2, CALL LIGHT WITHIN REACH, WILL CONTINUE TO MONITOR.
--- NOTE | 2018-06-23 06:28 | NUR ---
MS/RN NOTES PT. IS LYING IN BED RESTING. BREATHING EVEN AND UNLABORED ON 3LPM O2 VIA NC. NO SOB, RESPIRATORY DISTRESS OR COMPLAINTS OF PAIN NOTED AT THIS TIME. PT. WITH LEFT AC 20 GAUGE IV SALINE LOCK PRESENT, PATENT AND INTACT. ALL PT. NEEDS MET. BED LOCKED AND IN LOWEST POSITION, SIDE RAILS UP X2, CALL LIGHT WITHIN REACH, WILL ENDORSE TO DAYSHIFT NURSE FOR CONTINUITY OF CARE.
--- NOTE | 2018-06-23 07:30 | NUR ---
RN INITIAL NOTES PT LAYING IN BED COMFORTABLY, AWAKE AND ALERT. O2 VIA NASAL CANNULA AT 3L, TOLERATING WELL, NO SIGNS OF LABORED BREATHING. IV ACCESS ON THE LEFT AC 20G PATENT AND INTACT. SKIN IS INTACT. DENIES ANY PAIN. BED ON LOW, CALL LIGHT WITHIN REACH. WILL CONTINUE TO MONITOR AND ASSESS.
[2018-06-23] MEDS: ALBUTEROL FS 2.5 MG/3 ML VIAL.NEB NEB SCH (08:03)
[2018-06-23] MEDS: LIPASE/PROTEASE/AMYLASE 1 EACH CAPSULE.DR PO SCH (08:42)
[2018-06-23] MEDS: FLUTICASONE/VILANTEROL 1 EACH BLST.W.DEV IH SCH (08:42)
[2018-06-23] MEDS: CARVEDILOL 3.125 MG TABLET PO SCH (08:43)
[2018-06-23] MEDS: AMLODIPINE BESYLATE 2.5 MG TABLET PO SCH (08:44)
--- NOTE | 2018-06-23 11:06 | NUR ---
RN NOTES RECEIVED VERBAL ORDER FROM DR. GIRON PT TO BE DISCHARGED HOME SELF CARE, ORDER ENTERED PER MD, WILL CONTINUE TO ASSIST WITH DISCHARGE PROCESS
--- NOTE | 2018-06-23 11:31 | NUR ---
RN NOTES PT WAS TAKEN OFF OXYGEN AT 1100 TO SEE HOW WELL SHE TOLERATES ROOM AIR. CHECKED UP ON HER 30 MINUTES LATER AND PT TOLERATED ROOM AIR WELL, SPO2 AT 94%, NO SIGNS OF LABORED BREATHING OR SOB.
--- NOTE | 2018-06-23 12:00 | NUR ---
MORTGAGE LOAN INTERVIEWER NOTES PT LEFT WITH FAMILY AMBULATORY. NO SIGNS OF SOB OR LABORED BREATHING. IV ACCESS REMOVED. EDUCATIONAL TEACHING WAS PROVIDED TO THE PATIENT AND FAMILY. DISCHARGE INSTRUCTIONS REVIEWED WITH PATIENT AND FAMILY, NOTED VERBAL UNDERSTANDING. PNEUMONIA VACCINE WAS NOT ADMINISTERED BECAUSE IT WAS GIVEN ON AUG 2016 ACCORDING TO THE PATIENT. FLU VACCINE WAS NOT GIVEN BECAUSE OUT OF SEASON, TEACHING ABOUT BENEFITS AND RISKS WAS PROVIDED TO THE PATIENT. SKIN IS INTACT. STABLE AT THE TIME OF DISCHARGE. ASSISTED TO LOBBY BY RN.
[2018-06-24] MEDS ORDERED: methylPREDNISolone SOD SUCC 125 MG/2ML VIAL ONE (18:03)
== END 2018-06-23 12:10 | disposition home or self-care (01) | DRG 291 ==
LOC: ER 16:52 → TELE 20:06 → ICU 06-21 00:09 → MED 06-23 05:32
PROVIDERS: ADMIT Family Medicine; ATTEND Family Medicine
DX: I11.0 Hypertensive heart disease with heart failure (principal); J96.21 Acute and chronic respiratory failure with hypoxia; E44.0 Moderate protein-calorie malnutrition; I25.10 Atherosclerotic heart disease of native coronary artery without angina pectoris; K21.9 Gastro-esophageal reflux disease without esophagitis; E78.5 Hyperlipidemia, unspecified; E83.42 Hypomagnesemia; D72.819 Decreased white blood cell count, unspecified; E87.6 Hypokalemia; D50.9 Iron deficiency anemia, unspecified; F03.90 Unspecified dementia, unspecified severity, without behavioral disturbance, psychotic disturbance, mood disturbance, and anxiety; F41.9 Anxiety disorder, unspecified; J44.9 Chronic obstructive pulmonary disease, unspecified; Z53.20 Procedure and treatment not carried out because of patient's decision for unspecified reasons; Z87.01 Personal history of pneumonia (recurrent); Z90.49 Acquired absence of other specified parts of digestive tract; E66.9 Obesity, unspecified; Z68.31 Body mass index [BMI] 31.0-31.9, adult; I50.33 Acute on chronic diastolic (congestive) heart failure
CPT/HCPCS: 36415; 36600; 71045-TC; 80048-TC; 80053-TC; 80076-TC; 83540-TC; 83690-TC; 83735-TC; 83880; 84443-TC; 84484-TC; 85025-TC; 85378-TC; 85730-TC; 87081-TC; 93970-TC; 94799-TC; A4606; C9113; J0456; J1650; J1940; J2920; J2930; J7050; J7060; Z7610

== ENCOUNTER 2018-06-24 15:21 | Inpatient (IN) | payer MEDICARE, OTHER ==
[~2018-06-24] VITALS: Ht 152.4 cm; Wt 75.7 kg
[~2018-06-24 15:21] MED LIST changes: +AMLO5TAB2 PO; +PROP20TA19 PO
[2018-06-24 15:48] LABS: HEMATOCRIT 38 % (33-45); HEMOGLOBIN 12.6 g/dL (11.5-14.8); MEAN CORPUSCULAR HEMOGLOBIN 29 PG (26.0-33.0); MEAN CORPUSCULAR HGB CONC 33 g/dl (31.0-36.0); MEAN CORPUSCULAR VOLUME 89 fL (82-100); PLATELET COUNT (AUTO) 203 /CMM (150-450); RED BLOOD CELL COUNT(AUTO) 4.32 MIL/uL (4.0-5.2); WHITE BLOOD COUNT (AUTO) 13.5 K/uL (4.3-11.0)
[2018-06-24 15:55] LABS: CALCIUM, SERUM 9.4 mg/dL (8.5-10.1); CARBON DIOXIDE 25 mmol/L (21-32); CHLORIDE 103 mmol/L (98-107); CREATININE 1.1 mg/dL (0.6-1.3); GLUCOSE 106 mg/dL (74-106); POTASSIUM 3.4 mmol/L (3.5-5.1); SODIUM SERUM 138 mmol/L (136-145); UREA NITROGEN, BLOOD 25 mg/dL (7-18)
[2018-06-24 16:04] LABS: INR 0.92 (0.85-1.15)
[2018-06-24 16:08] LABS: ALANINE AMINOTRANSFERASE 462 U/L (12-78); ALBUMIN 3.1 g/dL (3.4-5.0); ALKALINE PHOSPHATASE 103 U/L (46-116); ASPARTATE AMINOTRANSFERASE 536 U/L (15-37); B-TYPE NATRIURETIC PEPTIDE 456 PG/ML (0-125); BILIRUBIN,DIRECT 0.6 mg/dL (0.0-0.2); BILIRUBIN,TOTAL 1.3 mg/dL (0.2-1.0); TOTAL PROTEIN, SERUM 7.2 g/dL (6.4-8.2)
[2018-06-24] MEDS ORDERED: IOHEXOL-350 100 ML VIAL IV ONE (16:49)
[2018-06-24] MEDS ORDERED: CT SWABBABLE VALVE TRANS SET 1 EA INFUS.SET MC ONE (16:49)
[2018-06-24] MEDS ORDERED: IV NS 0.9% 250 ML IV ONE (16:50)
--- NOTE | 2018-06-24 16:52 | NUR ---
CALLED NURSING PRINCIPAL AUTOMATION ENGINEER AND REQUESTED A TELE BED FOR THIS PT.
--- NOTE | 2018-06-24 17:29 | NUR ---
CALL NURSE SUP FOR TELE BED
--- NOTE | 2018-06-24 17:49 | NUR ---
ADMIT TO ROOM 111-2
--- NOTE | 2018-06-24 17:55 | NUR ---
PAGED DR GIRON FOR CONSULT/ORDERS FOR THIS PATIENT.
[2018-06-24] MEDS ORDERED: CEFEPIME 1 GM in IV D5W 50 ML IV ONE (18:00)
[2018-06-24] MEDS ORDERED: VANCOMYCIN 1 GM in IV D5W 250 ML IV ONE (18:00)
[2018-06-24] MEDS ORDERED: methylPREDNISolone SOD SUCC 125 MG/2ML VIAL IV ONE (18:00)
[2018-06-24] MEDS ORDERED: CEFEPIME 1 GM VIAL ONE (18:08)
--- NOTE | 2018-06-24 18:13 | NUR ---
DR GIRON CALLED DR CHISHOLM BACK
--- NOTE | 2018-06-24 18:45 | NUR ---
Pt for admission, No acute changes NO distress, Family and pt updated with plan of care. VSS Report given to RN-Soon transported per bridget limonEMT and RN
[2018-06-24 20:00] VITALS: BP 104/50
--- NOTE | 2018-06-24 20:00 | NUR ---
ASSISTANT PRODUCT MANAGER ADMITTING NOTES RECEIVED PT FROM ER W/ DIAGNOSIS PNEUMONIA UNDER CARE OF DR GIRON. PATIENT ARRIVED VIA GURNEY, A/A/O X3, ABLE TO STATE PAIN AND FOLLOW SIMPLE COMMANDS. BREATHING EVEN & UNLABORED, TOLERATING O2 @ 2LPM VIA NC. ON TELE MONITOR W/ SINUS RHYTHM, HR 110 BUT DENIES ANY CHEST PAIN OR DISCOMFORT. DENIES SOB OR DIFFICULTY BREATHING. RIGHT AC IV #20 INTACT & PATENT W/ DRESSING CDI. SKIN WARM, DRY & INTACT, SKIN ASSESSMENT DONE. NO SKIN ISSUES NOTED. DENIES ANY PAIN OR DISCOMFORT @ THIS TIME. ORIENTED TO ROOM & INSTRUCTED TO USE CALL LIGHT FOR ASSISTANCE. SAFETY MEASURES IN PLACE W/ BED ALARM ON. DR GIRON CALLED & RECEIVED ADMITTING ORDERS. NEW ORDERS NOTED & CARRIED OUT. WILL CONTINUE TO MONITOR.
[2018-06-24] MEDS ORDERED: FEE PK DOSING 1 MIN EA MC ONE (20:51)
[2018-06-24] MEDS ORDERED: ACETAMINOPHEN ES 500 MG TABLET PO PRN (21:00)
[2018-06-24] MEDS: IPRATROPIUM NEB FS 0.5 MG/2.5 ML AMPUL.NEB NEB SCH (23:30)
[2018-06-24] MEDS: ALBUTEROL FS 2.5 MG/0.5 ML VIAL.NEB NEB SCH (23:30)
[2018-06-24] MEDS: PIPERACILLIN /TAZOBACTAM 3.375 G in IV D5W 50 ML IV SCH (23:33)
[2018-06-25] VITALS: BP 115/64
[2018-06-25 04:00] VITALS: BP 108/73
[2018-06-25] MEDS: PIPERACILLIN /TAZOBACTAM 3.375 G in IV D5W 50 ML IV SCH ×4 (05:13→23:28)
[2018-06-25 06:40] LABS: EOSINOPHILS % (AUTO) 0.1 % (0.0-6.0); HEMATOCRIT 36 % (33-45); HEMOGLOBIN 11.4 g/dL (11.5-14.8); LYMPHOCYTES # (AUTO) 0.8 /CMM (0.8-4.8); LYMPHOCYTES % (AUTO) 6.7 % (20.0-44.0); MEAN CORPUSCULAR HEMOGLOBIN 30 PG (26.0-33.0); MEAN CORPUSCULAR HGB CONC 32 g/dl (31.0-36.0); MEAN CORPUSCULAR VOLUME 94 fL (82-100); MONOCYTES % (AUTO) 0.2 % (2.0-12.0); NEUTROPHILS # (AUTO) 11.4 /CMM (1.8-8.9); PLATELET COUNT (AUTO) 201 /CMM (150-450); RDW COEFFICIENT OF VARIATION 13.7 (11.5-15.0); RED BLOOD CELL COUNT(AUTO) 3.86 MIL/uL (4.0-5.2); WHITE BLOOD COUNT (AUTO) 12.3 K/uL (4.3-11.0)
[2018-06-25 06:41] LABS: IRON, SERUM 42 ug/dl (50-175); THYROID STIMULATING HORMONE 0.876 uIU/mL (0.358-3.74)
[2018-06-25 06:56] LABS: CALCIUM, SERUM 8.7 mg/dL (8.5-10.1); CARBON DIOXIDE 25 mmol/L (21-32); CHLORIDE 106 mmol/L (98-107); CREATININE 0.7 mg/dL (0.6-1.3); GLUCOSE 193 mg/dL (74-106); MAGNESIUM 1.8 mg/dL (1.8-2.4); SODIUM SERUM 139 mmol/L (136-145); UREA NITROGEN, BLOOD 22 mg/dL (7-18)
[2018-06-25] MEDS: IPRATROPIUM NEB FS 0.5 MG/2.5 ML AMPUL.NEB NEB SCH ×3 (07:06→23:18)
[2018-06-25] MEDS: ALBUTEROL FS 2.5 MG/0.5 ML VIAL.NEB NEB SCH ×3 (07:06→23:18)
--- NOTE | 2018-06-25 07:30 | NUR ---
RN NOTES RECEIVED PATIENT IN BED ALERT, AWAKE, ORIENTED X3 WITH BREATHING NORMAL, EVEN AND UNLABORED. NO SOB NOTED. NO ACUTE DISTRESS NOTED. TELE MONITOR REVEALS SR,HR=78. IV LAC AND RAC ARE PATENT ARE INTACT,NO INFILTRATION NOTED. BOWEL SOUND PRESENT. PULSES PRESENT. SAFETY MEASURE OBSERVED. ALL NEEDS ATTENDED. CALL LIGHT WITH IN REACH. WILL CONT TO MONITOR.
[2018-06-25 08:00] VITALS: BP 110/60
[2018-06-25] MEDS ORDERED: methylPREDNISolone SOD SUCC 125 MG/2ML VIAL IV ONE (09:00)
[2018-06-25] MEDS ORDERED: ONDANSETRON HCL/PF 4 MG/2 ML VIAL IV PRN (09:30)
[2018-06-25] MEDS: Magnesium 1GM/D5W 100ML PREMIX 100 ML IV SCH ×2 (09:44→10:00)
[2018-06-25] MEDS: PANTOPRAZOLE 40 MG VIAL IV SCH (09:45)
[2018-06-25] MEDS: ENOXAPARIN SODIUM 40 MG/0.4 ML DISP.SYRIN SQ SCH (09:45)
[2018-06-25] MEDS: IV D5/ 0.9% NACL 1,000 ML IV PRN ×2 (09:46→16:04)
[2018-06-25 09:57] LABS: ALBUMIN 2.5 g/dL (3.4-5.0); BILIRUBIN,DIRECT 0.1 mg/dL (0.0-0.2); BILIRUBIN,TOTAL 0.6 mg/dL (0.2-1.0); TOTAL PROTEIN, SERUM 6.6 g/dL (6.4-8.2)
[2018-06-25] MEDS: VANCOMYCIN 0.75 GM in IV D5W 250 ML IV SCH ×2 (11:07→21:35)
[2018-06-25 12:00] VITALS: BP 125/60
[2018-06-25] MEDS ORDERED: VANCOMYCIN 1 GM in IV D5W 250 ML IV SCH (12:00)
[2018-06-25] MEDS ORDERED: Magnesium 1GM/D5W 100ML PREMIX 100 ML IV ONE (13:00)
[2018-06-25] MEDS: SOD FERRIC GLUC 125 MG in IV NS 0.9% 100 ML IV SCH (14:05)
[2018-06-25 16:00] VITALS: BP 134/69
[2018-06-25] MEDS: LACTOBACILLUS RHAMNOSUS GG 1 EACH CAP.SPRINK PO SCH (18:06)
[2018-06-25 19:02] LABS: APPEARANCE,URINE CLEAR (CLEAR); BILIRUBIN,URINE NEGATIVE (NEGATIVE); BLOOD, URINE TRACE Ery/uL (NEGATIVE); COLOR,URINE YELLOW (YELLOW); KETONES,URINE NEGATIVE (NEGATIVE); LEUKOCYTE ESTERASE ,URINE TRACE (NEGATIVE); NITRITE, URINE NEGATIVE (NEGATIVE); PROTEIN,URINE NEGATIVE (NEGATIVE); UGLUCOSE NEGATIVE (NEGATIVE); UROBILINOGEN,URINE 0.2 EU/dL (0.2)
--- NOTE | 2018-06-25 19:10 | NUR ---
RN NOTES PATIENT ENDORSED TO NEXT SHIFT IN STABLE CONDITION FOR CONTINUITY OF CARE.
[2018-06-25 19:23] LABS: BACTERIA,URINE Few /HPF (None Seen); SQUAMOUS EPITHELIAL CELL,UR Few /HPF (None Seen)
[2018-06-25 20:00] VITALS: BP 113/64
--- NOTE | 2018-06-25 20:00 | NUR ---
EQUIPMENT PROCESSER STORAGE OPENING NOTES RECEIVED REPORT FROM CAROLYN KOHLI. PATIENT A/A/O X3, ABLE TO STATE PAIN AND FOLLOW SIMPLE COMMANDS. BREATHING EVEN & UNLABORED, TOLERATING O2 @ 2LPM VIA NC. ON TELE MONITOR W/ SINUS RHYTHM, HR 70S. DENIES SOB OR DIFFICULTY BREATHING. RIGHT AC IV #20 INTACT & PATENT W/ DRESSING CDI & IVF D5 NS INFUSING WELL @ 60 ML/HR. DENIES ANY PAIN OR DISCOMFORT @ THIS TIME. SAFETY MEASURES IN PLACE W/ BED ALARM ON. INSTRUCTED TO USE CALL LIGHT FOR ASSISTANCE. WILL CONTINUE TO MONITOR.
[2018-06-25] MEDS: LORAZEPAM 1 MG TABLET PO SCH (22:31)
[2018-06-26] VITALS: BP 113/59
[2018-06-26 04:00] VITALS: BP 100/55
[2018-06-26] MEDS: PIPERACILLIN /TAZOBACTAM 3.375 G in IV D5W 50 ML IV SCH ×4 (05:05→23:42)
[2018-06-26 07:10] LABS: ALANINE AMINOTRANSFERASE 168 U/L (12-78); ALBUMIN 2.2 g/dL (3.4-5.0); ALKALINE PHOSPHATASE 66 U/L (46-116); ASPARTATE AMINOTRANSFERASE 34 U/L (15-37); BILIRUBIN,TOTAL 0.3 mg/dL (0.2-1.0); CALCIUM, SERUM 8.2 mg/dL (8.5-10.1); CARBON DIOXIDE 25 mmol/L (21-32); CHLORIDE 104 mmol/L (98-107); CREATININE 0.8 mg/dL (0.6-1.3); GLUCOSE 222 mg/dL (74-106); MAGNESIUM 2.2 mg/dL (1.8-2.4); POTASSIUM 3.4 mmol/L (3.5-5.1); SODIUM SERUM 138 mmol/L (136-145); TOTAL PROTEIN, SERUM 6.1 g/dL (6.4-8.2); UREA NITROGEN, BLOOD 16 mg/dL (7-18)
[2018-06-26 07:17] LABS: HEMATOCRIT 33 % (33-45); HEMOGLOBIN 10.8 g/dL (11.5-14.8); LYMPHOCYTES # (AUTO) 1.2 /CMM (0.8-4.8); LYMPHOCYTES % (AUTO) 8.8 % (20.0-44.0); MEAN CORPUSCULAR HEMOGLOBIN 30 PG (26.0-33.0); MEAN CORPUSCULAR HGB CONC 33 g/dl (31.0-36.0); MEAN CORPUSCULAR VOLUME 94 fL (82-100); MONOCYTES # (AUTO) 0.4 /CMM (0.1-1.30); MONOCYTES % (AUTO) 2.9 % (2.0-12.0); NEUTROPHILS % (AUTO) 88.3 % (43.0-81.0); PLATELET COUNT (AUTO) 211 /CMM (150-450); RDW COEFFICIENT OF VARIATION 13.6 (11.5-15.0); RED BLOOD CELL COUNT(AUTO) 3.54 MIL/uL (4.0-5.2); WHITE BLOOD COUNT (AUTO) 13.6 K/uL (4.3-11.0)
--- NOTE | 2018-06-26 07:30 | NUR ---
. PATIENT A/A/O X3, ABLE TO STATE PAIN AND FOLLOW SIMPLE COMMANDS. BREATHING EVEN & UNLABORED, TOLERATING O2 @ 2LPM VIA NC. ON TELE MONITOR W/ SINUS RHYTHM, HR 80S. DENIES SOB OR DIFFICULTY BREATHING. RIGHT AC IV #20 INTACT & PATENT W/ DRESSING CDI & IVF D5 NS INFUSING WELL @ 60 ML/HR. DENIES ANY PAIN OR DISCOMFORT @ THIS TIME. SAFETY MEASURES IN PLACE W/ BED ALARM ON. INSTRUCTED TO USE CALL LIGHT FOR ASSISTANCE. WILL CONTINUE TO MONITOR.
[2018-06-26] MEDS: IPRATROPIUM NEB FS 0.5 MG/2.5 ML AMPUL.NEB NEB SCH ×3 (07:33→23:30)
[2018-06-26] MEDS: ALBUTEROL FS 2.5 MG/0.5 ML VIAL.NEB NEB SCH ×3 (07:33→23:30)
[2018-06-26 08:00] VITALS: BP 131/71
[2018-06-26] MEDS ORDERED: methylPREDNISolone SOD SUCC 125 MG/2ML VIAL IV ONE (09:00)
[2018-06-26] MEDS: Magnesium 1GM/D5W 100ML PREMIX 100 ML IV SCH ×2 (09:28→10:24)
[2018-06-26] MEDS: PANTOPRAZOLE 40 MG VIAL IV SCH (09:28)
[2018-06-26] MEDS: LACTOBACILLUS RHAMNOSUS GG 1 EACH CAP.SPRINK PO SCH ×2 (09:29→16:20)
[2018-06-26] MEDS: ENOXAPARIN SODIUM 40 MG/0.4 ML DISP.SYRIN SQ SCH (09:29)
[2018-06-26] MEDS: VANCOMYCIN 0.75 GM in IV D5W 250 ML IV SCH (10:36)
[2018-06-26] MEDS ORDERED: POTASSIUM CHLORIDE 20 MEQ TAB.PRT.SR PO SCH (11:30)
[2018-06-26 12:00] VITALS: BP 137/71
[2018-06-26] MEDS: SOD FERRIC GLUC 125 MG in IV NS 0.9% 100 ML IV SCH (14:54)
[2018-06-26] MEDS: IV D5/ 0.9% NACL 1,000 ML IV PRN (15:05)
[2018-06-26 16:00] VITALS: BP 134/71
--- NOTE | 2018-06-26 16:39 | NUR ---
REPORT GIVEN TO Dorian KOHLI PT REMAINS UNCHANGED SINCE THIS AM
--- NOTE | 2018-06-26 16:40 | NUR ---
RN NOTES RECEIVED REPORT FROM BRANDO FOR REYES, PT IN STABLE CONDITION. WILL CONT TO MONITOR
--- NOTE | 2018-06-26 19:13 | NUR ---
RN NOTES PT IN STABLE CONDITION. SAFETY MEASURES OBSERVED AT ALL TIMES. ALL NEEDS ANTICIPATED. ENDORSED TO PM SHIFT RN FOR REYES
[2018-06-26] MEDS ORDERED: LORA1TAB PO (19:34)
[2018-06-26] MEDS ORDERED: IPRA0.2S9 NEB (19:34)
[2018-06-26] MEDS ORDERED: ALBU2.5V13 NEB (19:34)
[2018-06-26] MEDS ORDERED: ACET-2605 PO (19:34)
[2018-06-26] MEDS ORDERED: POTA20TA83 PO (19:34)
[2018-06-26] MEDS ORDERED: PANT40VI IV (19:34)
[2018-06-26] MEDS ORDERED: ONDA4VIA30 IV (19:34)
[2018-06-26] MEDS ORDERED: LEVO500T90 PO (19:43)
[2018-06-26] MEDS ORDERED: POTASSIUM CHLORIDE 20 MEQ TAB.PRT.SR PO ONE (19:45)
[2018-06-26 20:00] VITALS: BP 137/77
[2018-06-26] MEDS: LORAZEPAM 1 MG TABLET PO SCH (21:21)
[2018-06-26] MEDS: VANCOMYCIN 1 GM in IV D5W 250 ML IV SCH (21:23)
--- NOTE | 2018-06-26 23:42 | NUR ---
RT PT REFUSE HHN TX, SHE WANTS TO SLEEP. NO SOB OR RESP DISTRESS NOTED AT THIS TIME.
[2018-06-27 04:00] VITALS: BP 127/73
[2018-06-27] MEDS: PIPERACILLIN /TAZOBACTAM 3.375 G in IV D5W 50 ML IV SCH (05:24)
[2018-06-27 06:42] VITALS: BP 127/73
[2018-06-27 07:03] LABS: EOSINOPHILS % (AUTO) 1.6 % (0.0-6.0); LYMPHOCYTES # (AUTO) 1.6 /CMM (0.8-4.8); LYMPHOCYTES % (AUTO) 17.3 % (20.0-44.0); MONOCYTES # (AUTO) 0.4 /CMM (0.1-1.30); MONOCYTES % (AUTO) 4.7 % (2.0-12.0); NEUTROPHILS # (AUTO) 7.3 /CMM (1.8-8.9); NEUTROPHILS % (AUTO) 76.4 % (43.0-81.0); RDW COEFFICIENT OF VARIATION 13.8 (11.5-15.0); RED BLOOD CELL COUNT(AUTO) 5.06 MIL/uL (4.0-5.2); WHITE BLOOD COUNT (AUTO) 9.5 K/uL (4.3-11.0)
[2018-06-27 07:07] LABS: HEMATOCRIT 34 % (33-45); HEMOGLOBIN 11.7 g/dL (11.5-14.8); MEAN CORPUSCULAR VOLUME 91 fL (82-100)
[2018-06-27 07:08] LABS: MEAN CORPUSCULAR HEMOGLOBIN 31 PG (26.0-33.0); MEAN CORPUSCULAR HGB CONC 34 g/dl (31.0-36.0); PLATELET COUNT (AUTO) 214 /CMM (150-450)
[2018-06-27 07:12] LABS: CALCIUM, SERUM 8.1 mg/dL (8.5-10.1); CARBON DIOXIDE 26 mmol/L (21-32); CHLORIDE 107 mmol/L (98-107); CREATININE 0.7 mg/dL (0.6-1.3); GLUCOSE 134 mg/dL (74-106); POTASSIUM 3.5 mmol/L (3.5-5.1); SODIUM SERUM 140 mmol/L (136-145); UREA NITROGEN, BLOOD 13 mg/dL (7-18)
--- NOTE | 2018-06-27 07:15 | NUR ---
RN MS INITIAL NOTES PATEINT RESTING IN BED WITH NO ACUTE DISTRESS NOTED, A&O X4 MALAYSIAN SPEAKING, ON 2L NC SAT ABOVE 97%, NO SOB AT THIS TIME, RIGHT AC 18 G INTACT AND PATENT NO INFILTRATION NOTED, ALL NEEDS MET ALL SAFETY MEASURES INITIATED, WILL CONTINUE TO MONITOR.
[2018-06-27] MEDS: ALBUTEROL FS 2.5 MG/0.5 ML VIAL.NEB NEB SCH (07:21)
[2018-06-27] MEDS: IPRATROPIUM NEB FS 0.5 MG/2.5 ML AMPUL.NEB NEB SCH (07:21)
--- NOTE | 2018-06-27 07:27 | NUR ---
CLARIFIED WITH PATIENT REGARDING DISCHARGE,PER PT. HER DAUGHTER WILL PICK HER UP TODAY AROUND NOON.
[2018-06-27 08:00] VITALS: BP 147/78
[2018-06-27] MEDS: ENOXAPARIN SODIUM 40 MG/0.4 ML DISP.SYRIN SQ SCH (08:23)
[2018-06-27] MEDS: PANTOPRAZOLE 40 MG VIAL IV SCH (08:26)
[2018-06-27] MEDS: LACTOBACILLUS RHAMNOSUS GG 1 EACH CAP.SPRINK PO SCH (08:26)
[2018-06-27] MEDS: VANCOMYCIN 1 GM in IV D5W 250 ML IV SCH (09:46)
--- NOTE | 2018-06-27 10:53 | NUR ---
RN MS ENDING NOTES PT STABLE FOR DC, VITAL SIGNS STABLE, NO ACUTE DISTRESS NOTED, ALL BELONGINGS LIST SIGNED, DC PAPERWORK SIGNED, NEW MEDICATION PRESCRIPTION PROVIDED TO PATIENT, EXIT CARE PROVIDED WELL, TEACHING DONE, IV SITE REMOVED NO INFILTRATION NOTED, PATIENT WOULD LIKE TO LEAVE VIA HER OWN CAR WITH SON AND TO ACCOMPANY HOME NO WHEELCHAIR WANTED WOULD LIKE TO WALK, ID BAND REMOVED, INFORMED PATIENT TO FOLLOW UP WITH DR ELLIOTT IN 5 DAYS MD REQUESTED, PT STABLE TO LEAVE.
== END 2018-06-27 10:45 | disposition home or self-care (01) | DRG 871 ==
LOC: ER 15:22 → TELE1 18:01 → MEDSG1 06-26 14:47
PROVIDERS: ADMIT Family Medicine; ATTEND Family Medicine
DX: A41.9 Sepsis, unspecified organism (principal); J96.01 Acute respiratory failure with hypoxia; I50.33 Acute on chronic diastolic (congestive) heart failure; N39.0 Urinary tract infection, site not specified; E44.0 Moderate protein-calorie malnutrition; K21.9 Gastro-esophageal reflux disease without esophagitis; I11.0 Hypertensive heart disease with heart failure; F41.9 Anxiety disorder, unspecified; E86.0 Dehydration; E66.9 Obesity, unspecified; E87.6 Hypokalemia; E78.5 Hyperlipidemia, unspecified; D72.819 Decreased white blood cell count, unspecified; I25.10 Atherosclerotic heart disease of native coronary artery without angina pectoris; D50.9 Iron deficiency anemia, unspecified; Z90.49 Acquired absence of other specified parts of digestive tract; Z87.01 Personal history of pneumonia (recurrent); Z53.20 Procedure and treatment not carried out because of patient's decision for unspecified reasons; F43.10 Post-traumatic stress disorder, unspecified; F03.90 Unspecified dementia, unspecified severity, without behavioral disturbance, psychotic disturbance, mood disturbance, and anxiety; Z68.32 Body mass index [BMI] 32.0-32.9, adult
CPT/HCPCS: 36415; 71045-TC; 76700-TC; 80048-TC; 80053-TC; 80076-TC; 80202-TC; 81000-TC; 82150-TC; 83540-TC; 83605-TC; 83690-TC; 83735-TC; 83880; 84443-TC; 84484-TC; 85025-TC; 85730-TC; 87040-TC; 87081-TC; 87086-TC; 94799-TC; A4606; C9113; J0692; J1650; J2543; J2916; J2930; J3370; J3475; J7030; J7042; J7050; J7060; Q9967; Z7610

== ENCOUNTER 2019-06-23 13:29 | Emergency (ER) | payer MEDICARE, OTHER ==
[~2019-06-23] VITALS: Ht 160 cm; Wt 72.1 kg
[~2019-06-23 13:29] MED LIST changes: +ACET-2605 PO; -ALBU18HF2 INH; +ALBU2.5V13 NEB; -AMLO5TAB2 PO; +AMLO5TAB9 PO; -DOXY100T2 PO; -EZET10TA27 PO; +EZET10TA32 PO; -FERR325T23 PO; +IPRA0.2S9 NEB; -IPRA12.9 INH; +ONDA4VIA23 IV; +PANT40VI IV; -ROSU10TA28 PO; +ROSU10TA29 PO
--- NOTE | 2019-06-23 13:29 | NUR ---
TO ER BED 2 FOR "FEVER EPISODE WHILE IN VACATION IN [place]", RETURNED TO [place] 06/22/19. HOOKED TO MONITOR, PROVIDE W WARM BLANKET, AWAITING MD FERNANDEZ
--- NOTE | 2019-06-23 14:50 | NUR ---
DR DREW AT BEDSIDE
--- NOTE | 2019-06-23 15:44 | NUR ---
Patient discharged to home in stable condition. Written and verbal after care instructions given. Patient verbalizes understanding of instruction.
[2019-06-23 15:45] VITALS: BP 132/74
== END 2019-06-23 15:45 | disposition home or self-care (01) ==
LOC: ER 13:30
DX: J18.9 Pneumonia, unspecified organism (principal); I10 Essential (primary) hypertension; K21.9 Gastro-esophageal reflux disease without esophagitis; Z90.49 Acquired absence of other specified parts of digestive tract; Z88.5 Allergy status to narcotic agent
CPT/HCPCS: 71046

== ENCOUNTER 2019-08-24 10:02 | Inpatient (IN) | payer MEDICARE, OTHER ==
[~2019-08-24] VITALS: Ht 152.4 cm; Wt 72.1 kg
--- NOTE | 2019-08-24 10:17 | NUR ---
PT BIB SON C/O FEVER STARTED THURSDAY, PARACETAMOL 500MG GIVEN AT 0730H LATEST TEMP:98.6F. PT C/O OF COUGH W/ CONGESTION X 2 DAYS, -SOB, AAOX4, VSS, BREATHING EVEN AND UNLABORED W/ NAD ON ROOM AIR. PT CONNECTED TO THE MONITOR
--- NOTE | 2019-08-24 10:32 | NUR ---
EKG AT BEDSIDE
--- NOTE | 2019-08-24 10:43 | NUR ---
BLOOD DRAWN AND SENT TO LAB
[2019-08-24 10:49] LABS: BASOPHILS # (AUTO) 0.1 /CMM (0.0-0.2)
[2019-08-24 10:52] LABS: BASOPHILS % (AUTO) 0.4 % (0.0-2.0); EOSINOPHILS % (AUTO) 3.2 % (0.0-6.0); HEMATOCRIT 35 % (33-45); HEMOGLOBIN 11.5 g/dL (11.5-14.8); LYMPHOCYTES # (AUTO) 0.8 /CMM (0.8-4.8); LYMPHOCYTES % (AUTO) 6.3 % (20.0-44.0); MEAN CORPUSCULAR HGB CONC 33 g/dl (31.0-36.0); MEAN CORPUSCULAR VOLUME 91 fL (82-100); MONOCYTES # (AUTO) 0.5 /CMM (0.1-1.30); MONOCYTES % (AUTO) 3.8 % (2.0-12.0); NEUTROPHILS # (AUTO) 10.8 /CMM (1.8-8.9); NEUTROPHILS % (AUTO) 86.3 % (43.0-81.0); PLATELET COUNT (AUTO) 158 /CMM (150-450); RED BLOOD CELL COUNT(AUTO) 3.84 MIL/uL (4.0-5.2); WHITE BLOOD COUNT (AUTO) 12.5 K/uL (4.3-11.0)
[2019-08-24 10:57] LABS: CALCIUM, SERUM 9.1 mg/dL (8.5-10.1); CREATININE 0.8 mg/dL (0.6-1.3); POTASSIUM 3.6 mmol/L (3.5-5.1)
[2019-08-24 11:03] LABS: ALBUMIN 3.1 g/dL (3.4-5.0); BILIRUBIN,DIRECT 0.6 mg/dL (0.0-0.2); TOTAL PROTEIN, SERUM 6.9 g/dL (6.4-8.2)
--- NOTE | 2019-08-24 11:27 | NUR ---
URINE OBTAINED AND SENT TO LAB.
[2019-08-24 11:34] LABS: APPEARANCE,URINE Clear (CLEAR); BILIRUBIN,URINE Negative (NEGATIVE); BLOOD, URINE Negative Ery/uL (NEGATIVE); COLOR,URINE Orange (YELLOW); KETONES,URINE Negative (NEGATIVE); LEUKOCYTE ESTERASE ,URINE Negative (NEGATIVE); NITRITE, URINE Positive (NEGATIVE); PROTEIN,URINE Negative (NEGATIVE); UGLUCOSE 100 MG/DL mg/dL (NEGATIVE)
[2019-08-24 11:46] LABS: BACTERIA,URINE Few /HPF (None Seen); RBC,URINE 0-2 /HPF (0-2); SQUAMOUS EPITHELIAL CELL,UR Rare /HPF (None Seen)
--- NOTE | 2019-08-24 11:55 | NUR ---
CALLED OFFICE OF [facility] MD.
--- NOTE | 2019-08-24 11:55 | NUR ---
ULTRASOUND AT BEDSIDE
[2019-08-24] MEDS ORDERED: PIPERACILLIN /TAZOBACTAM 3.375 G in IV D5W 50 ML IV ONE (12:00)
--- NOTE | 2019-08-24 12:27 | NUR ---
CALLED NURSING SUP FOR TELE BED
--- NOTE | 2019-08-24 13:26 | NUR ---
312-1 [facility]
--- NOTE | 2019-08-24 14:05 | NUR ---
REPORT GIVEN TO JARETH KOHLI FOR REYES.
[2019-08-24] MEDS ORDERED: LORA10TA7 PO (14:16)
[2019-08-24] MEDS ORDERED: ZOLP10TA6 PO (14:16)
[2019-08-24] MEDS ORDERED: ASPI-1152 PO (14:16)
[2019-08-24] MEDS ORDERED: RISP37.5 IM (14:16)
[2019-08-24] MEDS ORDERED: OMEG1CAP55 PO (14:16)
[2019-08-24] MEDS ORDERED: LOSA50TA39 PO (14:16)
[2019-08-24 16:00] VITALS: BP 138/66
[2019-08-24] MEDS ORDERED: ZOLPIDEM TARTRATE 10 MG TABLET PO PRN (17:30)
[2019-08-24] MEDS ORDERED: LORATADINE 10 MG TABLET PO PRN (17:30)
[2019-08-24] MEDS ORDERED: RISPERIDONE MICROSPHERES 25 MG IM SCH (17:30)
[2019-08-24] MEDS: LIPASE/PROTEASE/AMYLASE 1 EACH CAPSULE.DR PO SCH (18:57)
--- NOTE | 2019-08-24 19:20 | NUR ---
CHANGE OF SHIFT REPORT Patient in bed, awake. Appears anxious, denies shortness of breath. Tolerating RA, Sinus rhythm in the Tele monitor. Multiple family inside the room, all wants to be involved in the care. Patient is A/O x4, Turkish speaking, understand and speaks some Namibian.
[2019-08-24] MEDS ORDERED: ACETAMINOPHEN ES 500 MG TABLET PO PRN (19:30)
[2019-08-24 20:00] VITALS: BP 136/66
[2019-08-24] MEDS: PROPRANOLOL HCL 10 MG TABLET PO SCH (20:12)
[2019-08-24] MEDS: PIPERACILLIN /TAZOBACTAM 3.375 G in IV D5W 100 ML IV SCH (20:14)
[2019-08-24 20:23] VITALS: BP 136/66
[2019-08-24] MEDS ORDERED: PIPERACILLIN /TAZOBACTAM 3.375 G in IV D5W 50 ML IV SCH (21:00)
[2019-08-24] MEDS: LORAZEPAM 1 MG TABLET PO PRN (21:13)
[2019-08-24 23:48] VITALS: BP 109/56
[2019-08-25] MEDS: PIPERACILLIN /TAZOBACTAM 3.375 G in IV D5W 100 ML IV SCH ×3 (03:40→20:26)
[2019-08-25 03:42] VITALS: BP 146/69
--- NOTE | 2019-08-25 06:28 | NUR ---
END OF SHIFT REPORT Patient in bed, stable oxygen saturation on RA. Sinus Rhythm HR80 in the Tele monitor. Ambulates independently, denies pain. On Iv antibiotic as scheduled, afebrile overnight. Cardio/Pulmo/GI/Wound consult to follow. Maintained safety.
[2019-08-25 06:47] LABS: CALCIUM, SERUM 8.8 mg/dL (8.5-10.1); CREATININE 0.8 mg/dL (0.6-1.3); MAGNESIUM 1.7 mg/dL (1.8-2.4); POTASSIUM 3.6 mmol/L (3.5-5.1)
[2019-08-25 06:54] LABS: BASOPHILS % (AUTO) 0.3 % (0.0-2.0); EOSINOPHILS % (AUTO) 5.8 % (0.0-6.0); HEMATOCRIT 35 % (33-45); HEMOGLOBIN 11.9 g/dL (11.5-14.8); LYMPHOCYTES # (AUTO) 0.8 /CMM (0.8-4.8); LYMPHOCYTES % (AUTO) 9.8 % (20.0-44.0); MEAN CORPUSCULAR HGB CONC 34 g/dl (31.0-36.0); MEAN CORPUSCULAR VOLUME 91 fL (82-100); MONOCYTES # (AUTO) 0.4 /CMM (0.1-1.30); MONOCYTES % (AUTO) 5.3 % (2.0-12.0); NEUTROPHILS # (AUTO) 6.3 /CMM (1.8-8.9); NEUTROPHILS % (AUTO) 78.8 % (43.0-81.0); PLATELET COUNT (AUTO) 165 /CMM (150-450); RED BLOOD CELL COUNT(AUTO) 3.84 MIL/uL (4.0-5.2); WHITE BLOOD COUNT (AUTO) 7.9 K/uL (4.3-11.0)
[2019-08-25 07:00] LABS: THYROID STIMULATING HORMONE 3.134 uIU/mL (0.358-3.74)
[2019-08-25 08:00] VITALS: BP 135/70
[2019-08-25] MEDS: POTASSIUM CHLORIDE 20 MEQ TAB.PRT.SR PO SCH (08:42)
[2019-08-25] MEDS: ATORVASTATIN 10 MG TABLET PO SCH (08:43)
[2019-08-25] MEDS: EZETIMIBE 10 MG TABLET PO SCH (08:43)
[2019-08-25] MEDS: ASPIRIN EC 81 MG TABLET.DR PO SCH (08:43)
[2019-08-25] MEDS: LIPASE/PROTEASE/AMYLASE 1 EACH CAPSULE.DR PO SCH ×3 (08:46→17:44)
[2019-08-25] MEDS: PROPRANOLOL HCL 10 MG TABLET PO SCH ×2 (08:46→21:04)
[2019-08-25 10:15] LABS: ALBUMIN 3.1 g/dL (3.4-5.0); BILIRUBIN,DIRECT 0.2 mg/dL (0.0-0.2); BILIRUBIN,TOTAL 0.6 mg/dL (0.2-1.0); TOTAL PROTEIN, SERUM 7.3 g/dL (6.4-8.2)
[2019-08-25] MEDS ORDERED: IPRATROPIUM NEB FS 0.5 MG/2.5 ML AMPUL.NEB NEB PRN (10:30)
[2019-08-25] MEDS ORDERED: ALBUTEROL HALF STRENGTH 1.25 MG/3 ML VIAL.NEB NEB PRN (10:30)
[2019-08-25] MEDS: Magnesium 1GM/D5W 100ML PREMIX 100 ML IV SCH ×2 (10:44→16:43)
--- NOTE | 2019-08-25 12:00 | NUR ---
PT NPO FOT CT ABDOMEN/PELVIS W CONTRACT
--- NOTE | 2019-08-25 15:00 | NUR ---
A NEW IV LINE INSERTED TO THE LEFT AC G20. FLUSHING WELL
[2019-08-25] MEDS ORDERED: IV NS 0.9% 250 ML IV ONE (15:21)
[2019-08-25] MEDS ORDERED: IOHEXOL-300 100 ML VIAL IV ONE (15:21)
[2019-08-25] MEDS ORDERED: CT SWABBABLE VALVE TRANS SET 1 EA INFUS.SET MC ONE (15:22)
--- NOTE | 2019-08-25 15:30 | NUR ---
PATIENT PICKED UP FOR CT ABDOMEN
[2019-08-25 16:00] VITALS: BP 145/72
--- NOTE | 2019-08-25 18:40 | NUR ---
PATIENT AWAKE A/O X4 WITH FAMILY MEMBERS AT BED SIDE. DENIES ANY PAIN, SOB, DISCOMFORT. BREATHING UNLABORED AND EVEN ON ROOM AIR. ALL NEEDS ATTENDED. PATIENT KEPT COMFORTABLE. SAFETY PRECAUTIONS IN PLACE. CALL LIGHT WITHIN REACH. WILL ENDORSE TO NEXT SHIFT FOR REYES.
--- NOTE | 2019-08-25 19:05 | NUR ---
CHANGED OF SHIFT REPORT Patient in bed, awake, Sinus rhythm in the Tele monitor. A/O x4 denies pain. Instructed to use call light for assistance, verbalized understanding.
[2019-08-25 20:00] VITALS: BP 145/81
[2019-08-25] MEDS: LORAZEPAM 1 MG TABLET PO PRN (21:04)
[2019-08-25 21:07] VITALS: BP 131/49
[2019-08-25 21:08] VITALS: BP 145/81
--- NOTE | 2019-08-25 21:11 | NUR ---
CLARIFICATION VS Error vs recording. Corrected VS as followed BP 145/81 Pulse 84 RR 18 Remp 97.9 O2 sat. 94%RA
[2019-08-26] VITALS: BP 113/59
[2019-08-26] MEDS: PIPERACILLIN /TAZOBACTAM 3.375 G in IV D5W 100 ML IV SCH ×2 (03:41→12:22)
[2019-08-26 04:00] VITALS: BP_SYST 136; BP_SYST 142; BP_DIAS 65; BP_DIAS 77
[2019-08-26 06:23] LABS: BASOPHILS % (AUTO) 0.4 % (0.0-2.0); HEMATOCRIT 36 % (33-45); HEMOGLOBIN 11.8 g/dL (11.5-14.8); LYMPHOCYTES # (AUTO) 0.9 /CMM (0.8-4.8); LYMPHOCYTES % (AUTO) 12.5 % (20.0-44.0); MEAN CORPUSCULAR HGB CONC 33 g/dl (31.0-36.0); MEAN CORPUSCULAR VOLUME 91 fL (82-100); MONOCYTES # (AUTO) 0.5 /CMM (0.1-1.30); MONOCYTES % (AUTO) 6.4 % (2.0-12.0); NEUTROPHILS # (AUTO) 5.3 /CMM (1.8-8.9); NEUTROPHILS % (AUTO) 73.7 % (43.0-81.0); PLATELET COUNT (AUTO) 177 /CMM (150-450); RED BLOOD CELL COUNT(AUTO) 3.91 MIL/uL (4.0-5.2); WHITE BLOOD COUNT (AUTO) 7.2 K/uL (4.3-11.0)
--- NOTE | 2019-08-26 06:25 | NUR ---
END OF SHIFT REPORT Patient in bed, stable oxygen saturation on RA. Sinus Rhythm in the Tele monitor. Ambulates independently, denies pain. On IV antibiotic as scheduled, afebrile overnight. Urine, blood culture pending result. Fall precaution maintained.
[2019-08-26 06:41] LABS: ALBUMIN 2.8 g/dL (3.4-5.0); BILIRUBIN,DIRECT 0.1 mg/dL (0.0-0.2); BILIRUBIN,TOTAL 0.4 mg/dL (0.2-1.0); CALCIUM, SERUM 8.9 mg/dL (8.5-10.1); CREATININE 0.7 mg/dL (0.6-1.3); POTASSIUM 3.6 mmol/L (3.5-5.1); TOTAL PROTEIN, SERUM 6.7 g/dL (6.4-8.2)
[2019-08-26] MEDS: EZETIMIBE 10 MG TABLET PO SCH (08:15)
[2019-08-26] MEDS: POTASSIUM CHLORIDE 20 MEQ TAB.PRT.SR PO SCH (08:15)
[2019-08-26] MEDS: LIPASE/PROTEASE/AMYLASE 1 EACH CAPSULE.DR PO SCH ×2 (08:15→12:24)
[2019-08-26] MEDS: ASPIRIN EC 81 MG TABLET.DR PO SCH (08:15)
[2019-08-26] MEDS: PROPRANOLOL HCL 10 MG TABLET PO SCH (08:15)
[2019-08-26] MEDS: ATORVASTATIN 10 MG TABLET PO SCH (08:16)
[2019-08-26 08:45] VITALS: BP 136/72
[2019-08-26 08:52] VITALS: BP 136/72
--- NOTE | 2019-08-26 09:48 | NUR ---
WOUND CARE CONSULT: PT PRESENTS AMBULATORY AND CONTINENT WITH SOME INSECT BITES ON HER LOWER LEGS AND IRRITATION TO RT 5TH TOE, PRESENT ON ADMISSION. PT STATES WAS WEARING TIGHT SHOES BUT DENIES ANY DISCOMFORT. DEFER TO MD FOR INSECT BITES. WILL SEE PRN. CURRENT BYRON SCORE IS 21.
--- NOTE | 2019-08-26 12:18 | NUR ---
MS/RN CALLED DR. GIRON TO VERIFY IF PATIENT CAN BE DISCHARGED TODAY. PATIENT TO BE DISCHARGED ON LEVAQUIN PO 500MG FOR 3 DAYS PER MD ORDERS. MD WILL SEND PRESCRIPTION TO PHARMACY. PATIENT OK FOR DC PER KAMILA HARTMAN AND PER DR. SWAN.
--- NOTE | 2019-08-26 16:00 | NUR ---
MS/ETL DATABASE DEVELOPER PATIENT IS MEDICALLY STABLE FOR DISCHARGE, A/O X4, SHOWING NO SIGNS OF ACUTE DISTRESS OR SOB. VITAL SIGNS WNL. INSTRUCTIONS PROVIDED, PATIENT VERBALIZES UNDERSTANDING. IV REMOVED. ID BAND REMOVED. PATIENT REFUSED SKIN ASSESSMENT. PATIENT HAS ALL BELONGINGS WITH THEM. ALL PATIENT NEEDS MET. MD AWARE OF DISCHARGE.
--- NOTE | 2019-08-26 16:00 | NUR ---
PATIENT REFUSED D/C PICTURES.
--- NOTE | 2019-08-26 16:18 | NUR ---
MS/RN PATIENT LEFT UNIT PATIENT HAS LEFT UNIT WITH . PATIENT IS AMBULATORY.
== END 2019-08-26 16:00 | disposition home or self-care (01) | DRG 690 ==
LOC: ER 10:02 → TELE 13:57 → MED 08-26 08:54
PROVIDERS: ADMIT Family Medicine; ATTEND Family Medicine
DX: N39.0 Urinary tract infection, site not specified (principal); I50.32 Chronic diastolic (congestive) heart failure; E86.0 Dehydration; R00.0 Tachycardia, unspecified; D72.829 Elevated white blood cell count, unspecified; E83.42 Hypomagnesemia; E78.5 Hyperlipidemia, unspecified; D50.9 Iron deficiency anemia, unspecified; I25.10 Atherosclerotic heart disease of native coronary artery without angina pectoris; F03.90 Unspecified dementia, unspecified severity, without behavioral disturbance, psychotic disturbance, mood disturbance, and anxiety; F31.9 Bipolar disorder, unspecified; Z87.11 Personal history of peptic ulcer disease; E66.9 Obesity, unspecified; Z68.31 Body mass index [BMI] 31.0-31.9, adult; F41.9 Anxiety disorder, unspecified; F41.0 Panic disorder [episodic paroxysmal anxiety]; R74.0 Nonspecific elevation of levels of transaminase and lactic acid dehydrogenase [LDH]; K58.9 Irritable bowel syndrome, unspecified; K59.00 Constipation, unspecified; G89.29 Other chronic pain; M54.5 Low back pain; M81.0 Age-related osteoporosis without current pathological fracture; F43.10 Post-traumatic stress disorder, unspecified; J47.9 Bronchiectasis, uncomplicated; I11.0 Hypertensive heart disease with heart failure; Z87.01 Personal history of pneumonia (recurrent); E80.6 Other disorders of bilirubin metabolism; F25.0 Schizoaffective disorder, bipolar type; J44.9 Chronic obstructive pulmonary disease, unspecified
CPT/HCPCS: 36415; 71045-TC; 74178; 76705-TC; 80048-TC; 80053-TC; 80074; 80076-TC; 81000-TC; 82248-TC; 83540-TC; 83605-TC; 83735-TC; 84443-TC; 85025-TC; 85730-TC; 87040-TC; 87081-TC; 87086-TC; G0378; J2543; J3475; J3490; J7050; J7060; Q9967

== ENCOUNTER 2021-04-26 16:43 | Emergency (ER) | payer MEDICARE, OTHER ==
[~2021-04-26] VITALS: Ht 157.5 cm; Wt 90.7 kg
[~2021-04-26 16:43] MED LIST changes: -ACET-2605 PO; -ALBU2.5V13 NEB; -AMLO5TAB9 PO; +ASPI-1420 PO; -ESOM40CA52 PO; -IPRA0.2S9 NEB; -LEVO500T90 PO; +LORA10TA7 PO; +LOSA50TA39 PO; +OMEG1CAP55 PO; -ONDA4VIA23 IV; -PANT40VI IV; +RISP37.5 IM; +ZOLP10TA6 PO
--- NOTE | 2021-04-26 17:10 | NUR ---
PT CAME IN C/O DOG BITES ON LF HAND, AT BEDSIDE
[2021-04-26] MEDS: HYDROCODONE/APAP 5/325MG TABLET PO ONE (17:30)
[2021-04-26] MEDS: AMOX/CLAVULANATE 875 MG TABLET PO ONE (17:30)
[2021-04-26] MEDS ORDERED: HYDROCODONE/APAP 5/325MG TABLET ONE (17:45)
[2021-04-26] MEDS ORDERED: AMOX/CLAVULANATE 875 MG TABLET ONE (17:45)
[2021-04-26] MEDS ORDERED: TDAP [DIPH/PERTUSSIS/TET] 0.5 ML VIAL IM ONE (17:52)
[2021-04-26] MEDS: TDAP [DIPH/PERTUSSIS/TET] 0.5 ML VIAL IM ONE (18:05)
[2021-04-26] MEDS ORDERED: AMOX-430 PO (19:21)
[2021-04-26] MEDS ORDERED: IBUP-1957 PO (19:21)
[2021-04-26] MEDS ORDERED: HYDR-4209 PO (19:21)
[2021-04-26] MEDS: CEFAZOLIN 1 GM VIAL IM ONE (19:43)
--- NOTE | 2021-04-26 20:10 | NUR ---
Patient discharged to home in stable condition. Written and verbal after care instructions given. Patient verbalizes understanding of instruction.
[2021-04-26 20:11] VITALS: BP 144/84
== END 2021-04-26 20:11 | disposition home or self-care (01) ==
LOC: ER 16:45
DX: S62.315A Displaced fracture of base of fourth metacarpal bone, left hand, initial encounter for closed fracture (principal); I10 Essential (primary) hypertension; E78.5 Hyperlipidemia, unspecified; E11.9 Type 2 diabetes mellitus without complications; Z90.49 Acquired absence of other specified parts of digestive tract; Z88.8 Allergy status to other drugs, medicaments and biological substances; Z79.899 Other long term (current) drug therapy; Z79.82 Long term (current) use of aspirin; W54.0XXA Bitten by dog, initial encounter; Y93.89 Activity, other specified; Y92.89 Other specified places as the place of occurrence of the external cause; Y99.8 Other external cause status
CPT/HCPCS: 29125; 73130; 90471; 90715; 96372; 99284; A6403; J0690